=== PATIENT | male | born 1960 | race Hispanic/Latino ===

== ENCOUNTER → 2019-05-23 | Outpatient (CLI) | payer OTHER ==
[~2019-05-23] MED LIST: ASPI-1197 PO; ATOR40TA69 PO; FURO20TA4 PO; IBUP-2070 PO; LOSA50TA64 PO; METF-444 PO; METO-408 PO; NITR100C4 PO
== END | disposition home or self-care (01) ==
LOC: RAH 10:30
PROVIDERS: ATTEND Family Medicine
DX: R31.9 Hematuria, unspecified (principal)
CPT/HCPCS: 76770

== ENCOUNTER → 2020-01-24 | Outpatient (CLI) | payer SELFPAY | END | disposition home or self-care (01) | LOC: RAH 11:10 | PROVIDERS: ATTEND Internal Medicine Nephrology | DX: E04.2 Nontoxic multinodular goiter (principal) | CPT/HCPCS: 76536 ==

== ENCOUNTER → 2020-05-05 | Outpatient (CLI) | payer SELFPAY | END | disposition home or self-care (01) | LOC: RAH 12:08 | PROVIDERS: ATTEND Internal Medicine Nephrology | DX: M47.812 Spondylosis without myelopathy or radiculopathy, cervical region (principal); M48.02 Spinal stenosis, cervical region ==

== ENCOUNTER → 2020-05-27 | Outpatient (CLI) | payer SELFPAY | END | disposition home or self-care (01) | LOC: RAH 12:41 | PROVIDERS: ATTEND Internal Medicine Nephrology | DX: I67.82 Cerebral ischemia (principal); M50.221 Other cervical disc displacement at C4-C5 level; M50.222 Other cervical disc displacement at C5-C6 level; M50.223 Other cervical disc displacement at C6-C7 level | CPT/HCPCS: 70551; 72141 ==

== ENCOUNTER → 2020-07-02 | Outpatient (CLI) | payer SELFPAY | END | disposition home or self-care (01) | LOC: RAH 13:09 | PROVIDERS: ATTEND Internal Medicine Endocrinology, Diabetes & Metabolism | DX: E04.2 Nontoxic multinodular goiter (principal) | CPT/HCPCS: 76536 ==

== ENCOUNTER 2021-07-21 14:32 | Inpatient (IN) | payer OTHER ==
[~2021-07-21] VITALS: Ht 165.1 cm; Wt 172.4 kg
[2021-07-21 16:50] VITALS: BP 152/74
[2021-07-21] MEDS: ACETAMINOPHEN 500 MG TABLET PO SCH ×2 (17:38→21:08)
[2021-07-21 17:53] LABS: BASOPHILS % (AUTO) 0.1 % (0.0-5.0); HEMATOCRIT 36.1 % (42-54); LYMPHOCYTES % (AUTO) 7.9 % (21.0-51.0); MEAN CORPUSCULAR HEMOGLOBIN 30.1 pg (27.0-33.0); MEAN CORPUSCULAR HGB CONC 34.1 g/dL (32.0-36.0); MEAN CORPUSCULAR VOLUME 88.5 fL (79-99); MONOCYTES % (AUTO) 2.1 % (3.0-13.0); NEUTROPHILS % (AUTO) 89.2 % (40.0-77.0); PLATELET COUNT (AUTO) 201 K/uL (130-400); RED BLOOD CELL COUNT(AUTO) 4.08 MIL/uL (4.50-6.20); RED CELL DISTRIBUTION WIDTH 12.9 % (11.0-15.5); WHITE BLOOD COUNT (AUTO) 7.6 K/uL (4.8-10.8)
[2021-07-21 18:05] LABS: INR 1.09 (0.85-1.15); PROTHROMBIN TIME 11.8 SEC (9.6-11.6)
[2021-07-21 18:06] LABS: PARTIAL THROMBOPLASTIN TIME 35.4 SEC (26.3-35.5)
[2021-07-21 18:14] LABS: BILIRUBIN,TOTAL 0.6 mg/dL (0.2-1.0); CREATININE 1.2 mg/dL (0.5-1.5); POTASSIUM 4.2 mmol/L (3.5-5.1); TOTAL PROTEIN, SERUM 7.5 g/dL (6.0-8.3)
[2021-07-21] MEDS ORDERED: CEFTRIAXONE 1G VIAL IVP ONE (19:00)
[2021-07-21] MEDS ORDERED: AZITHROMYCIN 500MG+NS 250ML IV ONE (19:00)
[2021-07-21] MEDS ORDERED: 0.9% NACL 250ML IVPB ONE (19:00)
[2021-07-21 20:00] VITALS: BP 130/69
[2021-07-21] MEDS ORDERED: AZITHROMYCIN 500MG+NS 250ML 250 ML IV ONE (20:33)
[2021-07-21] MEDS ORDERED: CEFTRIAXONE 1G VIAL ONE (20:34)
[2021-07-21] MEDS: DEXAMETHASONE SOD PHOSPHATE 4 MG/ML 1ML VIAL IVP SCH (20:38)
[2021-07-21] MEDS ORDERED: IBUP-2070 PO (21:18)
[2021-07-21] MEDS ORDERED: SEMA1PEN3 SQ (21:18)
[2021-07-21] MEDS ORDERED: ALPR0.25 PO (21:18)
[2021-07-21] MEDS ORDERED: TAMS-1 PO (21:18)
[2021-07-21] MEDS ORDERED: ATOR40TA71 PO (21:18)
[2021-07-21] MEDS ORDERED: LOSA25TA41 PO (21:18)
[2021-07-21] MEDS ORDERED: ASPI-1197 PO (21:18)
[2021-07-21] MEDS ORDERED: METO25TA3 PO (21:18)
[2021-07-21] MEDS ORDERED: FURO20TA6 PO (21:18)
[2021-07-21] MEDS ORDERED: ONDANSETRON 4MG INJ IVP PRN (21:30)
[2021-07-21] MEDS ORDERED: IBUPROFEN 600 MG TABLET PO PRN ×2 (21:30)
[2021-07-21] MEDS ORDERED: SEMAGLUTIDE 0.5 MG SQ SCH (21:30)
[2021-07-21] MEDS ORDERED: INSULIN IV SS1 IV PRN ×2 (21:30)
[2021-07-21] MEDS ORDERED: GLUCAGON 1MG KIT 1 MG ML IM PRN (21:30)
[2021-07-21] MEDS ORDERED: ALPRAZOLAM 0.25 MG TABLET PO PRN (21:30)
[2021-07-21] MEDS ORDERED: DEXTROSE 50%-WATER 50 ML DISP.SYRIN IV PRN (21:30)
[2021-07-21] MEDS: DOXYCYCLINE HYCLATE 100 MG TABLET PO SCH (22:58)
[2021-07-22] VITALS (7 sets, daily range): BP systolic 132–162; BP diastolic 69–93
[2021-07-22] MEDS ORDERED: FUROSEMIDE 20 MG TABLET PO SCH ×2 (06:00→09:00)
[2021-07-22] MEDS: INSULIN HUMULIN R 100 UNIT/ML 3ML SQ SCH ×4 (06:15→20:55)
[2021-07-22 06:42] LABS: BASOPHILS % (AUTO) 0.1 % (0.0-5.0); HEMATOCRIT 40.6 % (42-54); LYMPHOCYTES % (AUTO) 6.6 % (21.0-51.0); MEAN CORPUSCULAR HEMOGLOBIN 29.7 pg (27.0-33.0); MEAN CORPUSCULAR HGB CONC 32.5 g/dL (32.0-36.0); MEAN CORPUSCULAR VOLUME 91.2 fL (79-99); MONOCYTES % (AUTO) 1.3 % (3.0-13.0); PLATELET COUNT (AUTO) 229 K/uL (130-400); RED BLOOD CELL COUNT(AUTO) 4.45 MIL/uL (4.50-6.20); RED CELL DISTRIBUTION WIDTH 12.8 % (11.0-15.5); WHITE BLOOD COUNT (AUTO) 9.2 K/uL (4.8-10.8)
[2021-07-22 06:46] LABS: HEMOGLOBIN A1C 6.3 % (4.0-6.0)
[2021-07-22 06:50] LABS: ALBUMIN 2.8 g/dL (3.5-5.0); BILIRUBIN,TOTAL 0.5 mg/dL (0.2-1.0); POTASSIUM 4.2 mmol/L (3.5-5.1); TOTAL PROTEIN, SERUM 7.6 g/dL (6.0-8.3)
[2021-07-22] MEDS ORDERED: METFORMIN HCL 500 MG TABLET PO SCH (08:00)
[2021-07-22] MEDS: DOXYCYCLINE HYCLATE 100 MG TABLET PO SCH ×2 (08:56→20:30)
[2021-07-22] MEDS ORDERED: SOLU-MEDROL 40MG VIAL IVP SCH (09:00)
[2021-07-22] MEDS ORDERED: ENOXAPARIN SODIUM 40 MG/0.4 ML SYRINGE SQ SCH (09:00)
[2021-07-22] MEDS ORDERED: TAMSULOSIN HCL 0.4 MG CAP.ER.24H PO SCH (09:00)
[2021-07-22] MEDS ORDERED: LOSARTAN 25 MG TABLET PO SCH (09:00)
[2021-07-22] MEDS ORDERED: METOPROLOL SUCCINATE 50 MG TAB.SR.24H PO SCH ×2 (09:00)
[2021-07-22] MEDS ORDERED: ASPIRIN 81MG CHEW TAB PO SCH ×2 (09:00)
[2021-07-22] MEDS ORDERED: FENOFIBRATE NANOCRYSTALLIZED 145 MG TAB PO SCH (09:30)
[2021-07-22 09:58] LABS: ABG BASE EXCESS -0.8 mmol/L (-2.0-3.0); ABG HCO3 22.7 mmol/L (21.0-28.0); ABG OXYGEN SATURATION 91.1 % (95.0-99.0); ABG PCO2 34 mmHg (35-48)
[2021-07-22] MEDS ORDERED: [UNRECOGNIZED DRUG - REMARK] MISC SCH (10:30)
[2021-07-22] MEDS: SOLU-MEDROL 125MG VIAL IVP SCH ×2 (10:50→16:54)
[2021-07-22] MEDS: FUROSEMIDE 20MG VIAL IV SCH ×2 (10:50→16:54)
[2021-07-22] MEDS: ENOXAPARIN SODIUM 80 MG/0.8 ML SQ SCH ×2 (10:51→20:31)
[2021-07-22] MEDS ORDERED: [UNRECOGNIZED DRUG - REMARK] MISC STA (14:11)
[2021-07-22] MEDS ORDERED: COMPOUND IV REFRIGERATED 1 EACH IVSOLN MISC PRN (14:30)
[2021-07-22] MEDS ORDERED: REMDESIVIR (EUA) 520 200 MG in 0.9% NACL 250ML 250 ML IV ONE (14:30)
[2021-07-22] MEDS: DEXAMETHASONE SOD PHOSPHATE 4 MG/ML 1ML VIAL IVP SCH (18:20)
[2021-07-22] MEDS ORDERED: CEFTRIAXONE 1G VIAL IVP ONE (19:00)
[2021-07-22] MEDS ORDERED: PHARMACY COMMUNICATION MISC SCH (19:30)
[2021-07-22] MEDS: OSELTAMIVIR PHOSPHATE 75 MG CAP PO SCH (20:30)
[2021-07-22] MEDS: HYDROXYCHLOROQUINE SULFATE 200 MG TAB PO SCH (20:30)
[2021-07-22] MEDS ORDERED: ATORVASTATIN 40 MG TABLET PO SCH ×2 (21:00)
[2021-07-22] MEDS: BARICITINIB (EUA) 2 MG TABLET PO SCH (23:30)
[2021-07-23] VITALS (7 sets, daily range): BP systolic 122–170; BP diastolic 57–85
[2021-07-23] MEDS: FUROSEMIDE 20MG VIAL IV SCH ×3 (01:53→17:36)
[2021-07-23] MEDS: SOLU-MEDROL 125MG VIAL IVP SCH ×3 (01:53→17:28)
[2021-07-23 05:04] LABS: BASOPHILS % (AUTO) 0.2 % (0.0-5.0); EOSINOPHILS % (AUTO) 0.1 % (0.0-8.0); HEMATOCRIT 41.3 % (42-54); LYMPHOCYTES % (AUTO) 6.2 % (21.0-51.0); MEAN CORPUSCULAR HGB CONC 33.9 g/dL (32.0-36.0); MEAN CORPUSCULAR VOLUME 88.6 fL (79-99); MONOCYTES % (AUTO) 1.8 % (3.0-13.0); NEUTROPHILS % (AUTO) 90.7 % (40.0-77.0); PLATELET COUNT (AUTO) 311 K/uL (130-400); RED BLOOD CELL COUNT(AUTO) 4.66 MIL/uL (4.50-6.20); RED CELL DISTRIBUTION WIDTH 12.7 % (11.0-15.5); WHITE BLOOD COUNT (AUTO) 11.5 K/uL (4.8-10.8)
[2021-07-23 05:18] LABS: ABG BASE EXCESS 1.6 mmol/L (-2.0-3.0); ABG HCO3 25.2 mmol/L (21.0-28.0); ABG OXYGEN SATURATION 90.5 % (95.0-99.0); ABG PCO2 36 mmHg (35-48)
[2021-07-23 05:33] LABS: ALBUMIN 2.9 g/dL (3.5-5.0); BILIRUBIN,TOTAL 0.6 mg/dL (0.2-1.0); CREATININE 1.1 mg/dL (0.5-1.5); CRP QUANTITATIVE 234.4 mg/L (0.00-9.0); MAGNESIUM 2.1 mg/dL (1.80-2.40); PHOSPHORUS 3.7 mg/dL (2.5-4.9); POTASSIUM 3.4 mmol/L (3.5-5.1)
[2021-07-23] MEDS: REMDESIVIR LABS MISC SCH (06:00)
[2021-07-23] MEDS: INSULIN HUMULIN R 100 UNIT/ML 3ML SQ SCH ×4 (06:20→21:59)
[2021-07-23] MEDS ORDERED: LIDOCAINE HCL-MPF 1% 2ML VIAL IV PRN ×2 (07:00)
[2021-07-23] MEDS ORDERED: POTASSIUM CHLORIDE 20MEQ/100ML 100 ML IV PRN (07:00)
[2021-07-23] MEDS ORDERED: BARICITINIB (EUA) 2 MG TABLET PO SCH (09:00)
[2021-07-23] MEDS: FENOFIBRATE NANOCRYSTALLIZED 145 MG TAB PO SCH (09:06)
[2021-07-23] MEDS: HYDROXYCHLOROQUINE SULFATE 200 MG TAB PO SCH ×2 (09:07→20:07)
[2021-07-23] MEDS: BARICITINIB (EUA) 2 MG TABLET PO SCH (09:07)
[2021-07-23] MEDS: DOXYCYCLINE HYCLATE 100 MG TABLET PO SCH ×2 (09:08→20:07)
[2021-07-23] MEDS: KCL 20 MEQ ERTAB PO PRN ×2 (09:08→17:29)
[2021-07-23] MEDS: OSELTAMIVIR PHOSPHATE 75 MG CAP PO SCH ×2 (09:08→20:07)
[2021-07-23] MEDS: ENOXAPARIN SODIUM 80 MG/0.8 ML SQ SCH ×2 (09:09→20:08)
[2021-07-23] MEDS: REMDESIVIR (EUA) 520 100 MG in 0.9% NACL 250ML 250 ML IV SCH (15:17)
[2021-07-23] MEDS: DIAZEPAM 5 MG TABLET PO PRN (17:46)
[2021-07-24] MEDS: FUROSEMIDE 20MG VIAL IV SCH ×3 (02:18→16:11)
[2021-07-24] MEDS: SOLU-MEDROL 125MG VIAL IVP SCH ×3 (02:19→16:11)
[2021-07-24 03:45] VITALS: BP 136/70
[2021-07-24 04:49] LABS: BASOPHILS % (AUTO) 0.2 % (0.0-5.0); EOSINOPHILS % (AUTO) 0.2 % (0.0-8.0); HEMATOCRIT 40.4 % (42-54); LYMPHOCYTES % (AUTO) 6.4 % (21.0-51.0); MEAN CORPUSCULAR HEMOGLOBIN 29.8 pg (27.0-33.0); MEAN CORPUSCULAR HGB CONC 32.9 g/dL (32.0-36.0); MEAN CORPUSCULAR VOLUME 90.6 fL (79-99); MONOCYTES % (AUTO) 2.5 % (3.0-13.0); NEUTROPHILS % (AUTO) 89.3 % (40.0-77.0); NUCLEATED RED BLOOD CELLS 0.2 % (0.0-0.19); PLATELET COUNT (AUTO) 385 K/uL (130-400); RED BLOOD CELL COUNT(AUTO) 4.46 MIL/uL (4.50-6.20); RED CELL DISTRIBUTION WIDTH 12.8 % (11.0-15.5); WHITE BLOOD COUNT (AUTO) 12.6 K/uL (4.8-10.8)
[2021-07-24 05:18] LABS: ALBUMIN 2.6 g/dL (3.5-5.0); BILIRUBIN,TOTAL 0.6 mg/dL (0.2-1.0); CREATININE 1.2 mg/dL (0.5-1.5); POTASSIUM 3.6 mmol/L (3.5-5.1); TOTAL PROTEIN, SERUM 7.4 g/dL (6.0-8.3)
[2021-07-24] MEDS: INSULIN HUMULIN R 100 UNIT/ML 3ML SQ SCH ×4 (06:11→22:15)
[2021-07-24 08:26] VITALS: BP 160/85
[2021-07-24] MEDS: HYDROXYCHLOROQUINE SULFATE 200 MG TAB PO SCH ×2 (09:54→22:04)
[2021-07-24] MEDS: FENOFIBRATE NANOCRYSTALLIZED 145 MG TAB PO SCH (09:54)
[2021-07-24] MEDS: KCL 20 MEQ ERTAB PO PRN ×2 (09:55→16:11)
[2021-07-24] MEDS: BARICITINIB (EUA) 2 MG TABLET PO SCH (09:55)
[2021-07-24] MEDS: DOXYCYCLINE HYCLATE 100 MG TABLET PO SCH ×2 (09:55→22:04)
[2021-07-24] MEDS: OSELTAMIVIR PHOSPHATE 75 MG CAP PO SCH ×2 (09:55→22:04)
[2021-07-24] MEDS: ENOXAPARIN SODIUM 80 MG/0.8 ML SQ SCH ×2 (09:56→22:05)
[2021-07-24] MEDS: DIAZEPAM 5 MG TABLET PO PRN ×2 (10:17→22:04)
[2021-07-24 11:03] VITALS: BP 116/40
[2021-07-24] MEDS: REMDESIVIR (EUA) 520 100 MG in 0.9% NACL 250ML 250 ML IV SCH (15:55)
[2021-07-24 16:44] VITALS: BP 159/85
[2021-07-24 20:00] VITALS: BP 129/65
[2021-07-24 23:37] VITALS: BP 137/79
[2021-07-25] MEDS: SOLU-MEDROL 125MG VIAL IVP SCH ×3 (01:09→17:50)
[2021-07-25] MEDS: FUROSEMIDE 20MG VIAL IV SCH ×2 (01:10→09:05)
[2021-07-25 03:54] LABS: ABG BASE EXCESS 4.6 mmol/L (-2.0-3.0); ABG HCO3 28.8 mmol/L (21.0-28.0); ABG OXYGEN SATURATION 88.5 % (95.0-99.0); ABG PCO2 41 mmHg (35-48)
[2021-07-25 04:00] VITALS: BP 129/76
[2021-07-25 06:13] LABS: BASOPHILS % (AUTO) 0.1 % (0.0-5.0); HEMATOCRIT 38.5 % (42-54); LYMPHOCYTES % (AUTO) 8.9 % (21.0-51.0); MEAN CORPUSCULAR HEMOGLOBIN 29.5 pg (27.0-33.0); MEAN CORPUSCULAR HGB CONC 32.5 g/dL (32.0-36.0); MEAN CORPUSCULAR VOLUME 90.8 fL (79-99); MONOCYTES % (AUTO) 3.1 % (3.0-13.0); NUCLEATED RED BLOOD CELLS 0.2 % (0.0-0.19); PLATELET COUNT (AUTO) 429 K/uL (130-400); RED BLOOD CELL COUNT(AUTO) 4.24 MIL/uL (4.50-6.20); RED CELL DISTRIBUTION WIDTH 12.8 % (11.0-15.5); WHITE BLOOD COUNT (AUTO) 9.1 K/uL (4.8-10.8)
[2021-07-25] MEDS: INSULIN HUMULIN R 100 UNIT/ML 3ML SQ SCH ×4 (06:17→21:07)
[2021-07-25 06:26] LABS: ALBUMIN 2.7 g/dL (3.5-5.0); BILIRUBIN,TOTAL 0.7 mg/dL (0.2-1.0); CREATININE 1.3 mg/dL (0.5-1.5); CRP QUANTITATIVE 57.1 mg/L (0.00-9.0); POTASSIUM 3.7 mmol/L (3.5-5.1); TOTAL PROTEIN, SERUM 7.1 g/dL (6.0-8.3)
[2021-07-25] MEDS: REMDESIVIR LABS MISC SCH (06:59)
[2021-07-25 08:00] VITALS: BP 145/74
[2021-07-25] MEDS: DIAZEPAM 5 MG TABLET PO PRN ×2 (08:36→21:24)
[2021-07-25] MEDS: OSELTAMIVIR PHOSPHATE 75 MG CAP PO SCH ×2 (08:36→21:20)
[2021-07-25] MEDS: DOXYCYCLINE HYCLATE 100 MG TABLET PO SCH ×2 (08:36→21:20)
[2021-07-25] MEDS: FENOFIBRATE NANOCRYSTALLIZED 145 MG TAB PO SCH (08:36)
[2021-07-25] MEDS: HYDROXYCHLOROQUINE SULFATE 200 MG TAB PO SCH ×2 (08:36→21:20)
[2021-07-25] MEDS: ENOXAPARIN SODIUM 80 MG/0.8 ML SQ SCH ×2 (08:37→21:20)
[2021-07-25] MEDS: BARICITINIB (EUA) 2 MG TABLET PO SCH (08:38)
[2021-07-25 12:00] VITALS: BP 137/75
[2021-07-25] MEDS: REMDESIVIR (EUA) 520 100 MG in 0.9% NACL 250ML 250 ML IV SCH (14:55)
[2021-07-25 16:00] VITALS: BP 150/73
[2021-07-25 20:00] VITALS: BP 159/84
[2021-07-25] MEDS: KCL 20 MEQ ERTAB PO PRN ×2 (21:20→22:46)
[2021-07-25 23:45] VITALS: BP 150/83
[2021-07-26] MEDS: SOLU-MEDROL 125MG VIAL IVP SCH ×3 (01:09→16:42)
[2021-07-26 03:43] VITALS: BP 148/75
[2021-07-26] MEDS: DIAZEPAM 5 MG TABLET PO PRN ×3 (05:01→20:41)
[2021-07-26 05:44] LABS: BASOPHILS % (AUTO) 0.1 % (0.0-5.0); HEMATOCRIT 38.3 % (42-54); LYMPHOCYTES % (AUTO) 9.2 % (21.0-51.0); MEAN CORPUSCULAR HEMOGLOBIN 29.6 pg (27.0-33.0); MEAN CORPUSCULAR HGB CONC 32.9 g/dL (32.0-36.0); MEAN CORPUSCULAR VOLUME 89.9 fL (79-99); PLATELET COUNT (AUTO) 459 K/uL (130-400); RED BLOOD CELL COUNT(AUTO) 4.26 MIL/uL (4.50-6.20); RED CELL DISTRIBUTION WIDTH 12.6 % (11.0-15.5); WHITE BLOOD COUNT (AUTO) 7.8 K/uL (4.8-10.8)
[2021-07-26 06:07] LABS: ALBUMIN 2.7 g/dL (3.5-5.0); BILIRUBIN,TOTAL 0.7 mg/dL (0.2-1.0); CREATININE 1.3 mg/dL (0.5-1.5); CRP QUANTITATIVE 32.6 mg/L (0.00-9.0); POTASSIUM 4.1 mmol/L (3.5-5.1); TOTAL PROTEIN, SERUM 6.9 g/dL (6.0-8.3)
[2021-07-26] MEDS: INSULIN HUMULIN R 100 UNIT/ML 3ML SQ SCH ×4 (06:23→20:35)
[2021-07-26] MEDS: REMDESIVIR LABS MISC SCH (06:23)
[2021-07-26 08:00] VITALS: BP 159/88
[2021-07-26] MEDS ORDERED: FUROSEMIDE 40 MG TABLET PO SCH (09:00)
[2021-07-26] MEDS: FENOFIBRATE NANOCRYSTALLIZED 145 MG TAB PO SCH (09:03)
[2021-07-26] MEDS: HYDROXYCHLOROQUINE SULFATE 200 MG TAB PO SCH ×2 (09:03→20:42)
[2021-07-26] MEDS: DOXYCYCLINE HYCLATE 100 MG TABLET PO SCH ×2 (09:03→20:42)
[2021-07-26] MEDS: BARICITINIB (EUA) 2 MG TABLET PO SCH (09:03)
[2021-07-26] MEDS: OSELTAMIVIR PHOSPHATE 75 MG CAP PO SCH ×2 (09:05→20:41)
[2021-07-26] MEDS: ENOXAPARIN SODIUM 80 MG/0.8 ML SQ SCH ×2 (09:05→20:41)
[2021-07-26 12:00] VITALS: BP 145/79
[2021-07-26] MEDS: REMDESIVIR (EUA) 520 100 MG in 0.9% NACL 250ML 250 ML IV SCH (13:36)
[2021-07-26 16:00] VITALS: BP 140/76
[2021-07-26 20:09] VITALS: BP 156/79
[2021-07-26] MEDS: FUROSEMIDE 40 MG TABLET PO SCH (20:41)
[2021-07-26 23:49] VITALS: BP 158/79
[2021-07-27] MEDS: SOLU-MEDROL 125MG VIAL IVP SCH ×3 (00:30→17:31)
[2021-07-27 04:36] VITALS: BP 159/71
[2021-07-27 04:48] LABS: BASOPHILS % (AUTO) 0.1 % (0.0-5.0); HEMATOCRIT 39.5 % (42-54); LYMPHOCYTES % (AUTO) 4.2 % (21.0-51.0); MEAN CORPUSCULAR HEMOGLOBIN 29.7 pg (27.0-33.0); MEAN CORPUSCULAR HGB CONC 32.7 g/dL (32.0-36.0); MEAN CORPUSCULAR VOLUME 90.8 fL (79-99); MONOCYTES % (AUTO) 3.8 % (3.0-13.0); NEUTROPHILS % (AUTO) 88.2 % (40.0-77.0); PLATELET COUNT (AUTO) 508 K/uL (130-400); RED BLOOD CELL COUNT(AUTO) 4.35 MIL/uL (4.50-6.20); RED CELL DISTRIBUTION WIDTH 12.3 % (11.0-15.5); WHITE BLOOD COUNT (AUTO) 11.1 K/uL (4.8-10.8)
[2021-07-27 05:03] LABS: ALBUMIN 2.8 g/dL (3.5-5.0); BILIRUBIN,TOTAL 0.8 mg/dL (0.2-1.0); CREATININE 1.2 mg/dL (0.5-1.5); POTASSIUM 3.9 mmol/L (3.5-5.1); TOTAL PROTEIN, SERUM 6.8 g/dL (6.0-8.3)
[2021-07-27] MEDS: INSULIN HUMULIN R 100 UNIT/ML 3ML SQ SCH ×4 (06:52→20:56)
[2021-07-27 07:00] VITALS: BP 154/89
[2021-07-27 07:56] LABS: ABG BASE EXCESS 5.9 mmol/L (-2.0-3.0); ABG HCO3 29.9 mmol/L (21.0-28.0); ABG OXYGEN SATURATION 90.2 % (95.0-99.0); ABG PCO2 41 mmHg (35-48)
[2021-07-27 11:00] VITALS: BP 147/80
[2021-07-27] MEDS: HYDROXYCHLOROQUINE SULFATE 200 MG TAB PO SCH ×2 (11:03→20:57)
[2021-07-27] MEDS: OSELTAMIVIR PHOSPHATE 75 MG CAP PO SCH (11:03)
[2021-07-27] MEDS: DOXYCYCLINE HYCLATE 100 MG TABLET PO SCH ×2 (11:03→20:57)
[2021-07-27] MEDS: BARICITINIB (EUA) 2 MG TABLET PO SCH (11:03)
[2021-07-27] MEDS: FENOFIBRATE NANOCRYSTALLIZED 145 MG TAB PO SCH (11:04)
[2021-07-27] MEDS: FUROSEMIDE 40 MG TABLET PO SCH ×2 (11:04→20:57)
[2021-07-27] MEDS: ENOXAPARIN SODIUM 80 MG/0.8 ML SQ SCH ×2 (11:05→20:59)
[2021-07-27] MEDS: DIAZEPAM 5 MG TABLET PO SCH ×2 (12:44→20:58)
[2021-07-27 16:00] VITALS: BP 149/88
[2021-07-27] MEDS: DIAZEPAM 5 MG TABLET PO PRN (16:14)
[2021-07-27 20:08] VITALS: BP 131/71
[2021-07-27] MEDS: TEMAZEPAM 15 MG CAPSULE PO SCH (21:01)
[2021-07-27] MEDS: BUSPIRONE HCL 5 MG TABLET PO SCH (21:01)
[2021-07-27 22:46] LABS: APPEARANCE,URINE Clear (CLEAR); BILIRUBIN,URINE Negative (NEGATIVE); COLOR,URINE Yellow (YELLOW); GLUCOSE, URINE (UA) Negative (NEGATIVE); KETONES,URINE Negative (NEGATIVE); LEUKOCYTE ESTERASE ,URINE Negative (NEGATIVE); NITRATE,URINE Negative (NEGATIVE); OCCULT BLOOD,URINE Negative (NEGATIVE); PROTEIN,URINE POS 1+ mg/dL (NEGATIVE)
[2021-07-27 23:03] LABS: BACTERIA,URINE None Seen /HPF (None Seen); SQUAMOUS EPITHELIAL CELL,UR Few /HPF (0-2)
[2021-07-28] VITALS (7 sets, daily range): BP systolic 107–122; BP diastolic 53–65
[2021-07-28] MEDS: SOLU-MEDROL 125MG VIAL IVP SCH ×3 (00:49→17:13)
[2021-07-28] MEDS: DIAZEPAM 5 MG TABLET PO SCH ×3 (04:00→20:50)
[2021-07-28 04:45] LABS: BASOPHILS % (AUTO) 0.2 % (0.0-5.0); HEMATOCRIT 36.5 % (42-54); LYMPHOCYTES % (AUTO) 3.8 % (21.0-51.0); MEAN CORPUSCULAR HEMOGLOBIN 29.9 pg (27.0-33.0); MEAN CORPUSCULAR HGB CONC 33.4 g/dL (32.0-36.0); MEAN CORPUSCULAR VOLUME 89.5 fL (79-99); MONOCYTES % (AUTO) 2.5 % (3.0-13.0); NEUTROPHILS % (AUTO) 91.1 % (40.0-77.0); PLATELET COUNT (AUTO) 561 K/uL (130-400); RED BLOOD CELL COUNT(AUTO) 4.08 MIL/uL (4.50-6.20); RED CELL DISTRIBUTION WIDTH 12.2 % (11.0-15.5)
[2021-07-28 05:11] LABS: ALBUMIN 2.7 g/dL (3.5-5.0); BILIRUBIN,TOTAL 0.7 mg/dL (0.2-1.0); CREATININE 1.2 mg/dL (0.5-1.5); TOTAL PROTEIN, SERUM 6.4 g/dL (6.0-8.3)
[2021-07-28] MEDS: INSULIN HUMULIN R 100 UNIT/ML 3ML SQ SCH ×4 (06:08→21:14)
[2021-07-28] MEDS: FENOFIBRATE NANOCRYSTALLIZED 145 MG TAB PO SCH (08:51)
[2021-07-28] MEDS: FUROSEMIDE 40 MG TABLET PO SCH ×2 (08:51→20:51)
[2021-07-28] MEDS: BARICITINIB (EUA) 2 MG TABLET PO SCH (08:51)
[2021-07-28] MEDS: ENOXAPARIN SODIUM 80 MG/0.8 ML SQ SCH ×2 (08:52→20:52)
[2021-07-28] MEDS: BUSPIRONE HCL 5 MG TABLET PO SCH ×2 (08:52→20:51)
[2021-07-28] MEDS: DOXYCYCLINE HYCLATE 100 MG TABLET PO SCH ×2 (08:52→20:50)
[2021-07-28] MEDS: HYDROXYCHLOROQUINE SULFATE 200 MG TAB PO SCH ×2 (08:52→20:50)
[2021-07-28] MEDS: DIAZEPAM 5 MG TABLET PO PRN (10:11)
[2021-07-28] MEDS: CLOTRIMAZOLE 10 MG TROCHE MM SCH ×2 (12:00→17:13)
[2021-07-28] MEDS: TEMAZEPAM 15 MG CAPSULE PO SCH (20:51)
[2021-07-29] MEDS: SOLU-MEDROL 125MG VIAL IVP SCH ×3 (00:45→16:42)
[2021-07-29] MEDS: CLOTRIMAZOLE 10 MG TROCHE MM SCH ×4 (00:46→16:42)
[2021-07-29 03:29] LABS: ABG BASE EXCESS 5.5 mmol/L (-2.0-3.0); ABG HCO3 29.3 mmol/L (21.0-28.0); ABG OXYGEN SATURATION 91.2 % (95.0-99.0); ABG PCO2 40 mmHg (35-48)
[2021-07-29] MEDS: DIAZEPAM 5 MG TABLET PO SCH ×3 (04:00→20:11)
[2021-07-29 04:13] VITALS: BP 100/54
[2021-07-29 05:42] LABS: CREATININE 1.1 mg/dL (0.5-1.5); POTASSIUM 4.3 mmol/L (3.5-5.1)
[2021-07-29] MEDS: INSULIN HUMULIN R 100 UNIT/ML 3ML SQ SCH ×4 (05:58→21:22)
[2021-07-29 08:00] VITALS: BP 125/71
[2021-07-29] MEDS: BUSPIRONE HCL 5 MG TABLET PO SCH ×3 (08:35→21:16)
[2021-07-29] MEDS: HYDROXYCHLOROQUINE SULFATE 200 MG TAB PO SCH ×2 (08:35→22:01)
[2021-07-29] MEDS: DOXYCYCLINE HYCLATE 100 MG TABLET PO SCH (08:36)
[2021-07-29] MEDS: FUROSEMIDE 40 MG TABLET PO SCH ×2 (08:36→21:16)
[2021-07-29] MEDS: BARICITINIB (EUA) 2 MG TABLET PO SCH (08:36)
[2021-07-29] MEDS: FENOFIBRATE NANOCRYSTALLIZED 145 MG TAB PO SCH (08:36)
[2021-07-29] MEDS: ENOXAPARIN SODIUM 80 MG/0.8 ML SQ SCH ×2 (08:37→21:16)
[2021-07-29 12:00] VITALS: BP 108/71
[2021-07-29 16:00] VITALS: BP 121/66
[2021-07-29 20:04] VITALS: BP 118/70
[2021-07-29] MEDS: TEMAZEPAM 15 MG CAPSULE PO SCH (21:16)
[2021-07-29 23:43] VITALS: BP 124/89
[2021-07-30] VITALS (7 sets, daily range): BP systolic 108–137; BP diastolic 56–81
[2021-07-30] MEDS: SOLU-MEDROL 125MG VIAL IVP SCH ×3 (00:44→17:29)
[2021-07-30] MEDS: CLOTRIMAZOLE 10 MG TROCHE MM SCH ×5 (00:44→23:19)
[2021-07-30] MEDS: DIAZEPAM 5 MG TABLET PO SCH ×3 (04:00→20:06)
[2021-07-30 05:02] LABS: HEMATOCRIT 37.3 % (42-54); MEAN CORPUSCULAR HGB CONC 33.2 g/dL (32.0-36.0); MEAN CORPUSCULAR VOLUME 90.1 fL (79-99); RED BLOOD CELL COUNT(AUTO) 4.14 MIL/uL (4.50-6.20); RED CELL DISTRIBUTION WIDTH 12.2 % (11.0-15.5); WHITE BLOOD COUNT (AUTO) 15.7 K/uL (4.8-10.8)
[2021-07-30 05:13] LABS: CREATININE 1.2 mg/dL (0.5-1.5); CRP QUANTITATIVE 44.5 mg/L (0.00-9.0); POTASSIUM 4.1 mmol/L (3.5-5.1)
[2021-07-30] MEDS: INSULIN HUMULIN R 100 UNIT/ML 3ML SQ SCH ×4 (06:25→20:05)
[2021-07-30] MEDS: FENOFIBRATE NANOCRYSTALLIZED 145 MG TAB PO SCH (09:10)
[2021-07-30] MEDS: BARICITINIB (EUA) 2 MG TABLET PO SCH (09:10)
[2021-07-30] MEDS: FUROSEMIDE 40 MG TABLET PO SCH ×2 (09:10→20:06)
[2021-07-30] MEDS: BUSPIRONE HCL 5 MG TABLET PO SCH ×3 (09:10→20:06)
[2021-07-30] MEDS: HYDROXYCHLOROQUINE SULFATE 200 MG TAB PO SCH ×2 (09:11→20:06)
[2021-07-30] MEDS: ENOXAPARIN SODIUM 80 MG/0.8 ML SQ SCH ×2 (10:02→20:13)
[2021-07-30] MEDS: TEMAZEPAM 15 MG CAPSULE PO SCH (20:06)
[2021-07-31] MEDS: SOLU-MEDROL 125MG VIAL IVP SCH (00:53)
[2021-07-31] MEDS: DIAZEPAM 5 MG TABLET PO SCH ×3 (04:39→19:49)
[2021-07-31] MEDS: CLOTRIMAZOLE 10 MG TROCHE MM SCH ×4 (04:39→22:59)
[2021-07-31 04:57] VITALS: BP 110/64
[2021-07-31] MEDS: INSULIN HUMULIN R 100 UNIT/ML 3ML SQ SCH ×4 (06:01→19:50)
[2021-07-31 06:40] LABS: ALBUMIN 2.5 g/dL (3.5-5.0); BILIRUBIN,TOTAL 0.7 mg/dL (0.2-1.0); CREATININE 1.2 mg/dL (0.5-1.5); CRP QUANTITATIVE 54.2 mg/L (0.00-9.0); POTASSIUM 4.4 mmol/L (3.5-5.1); TOTAL PROTEIN, SERUM 5.9 g/dL (6.0-8.3)
[2021-07-31 06:51] VITALS: BP 130/67
[2021-07-31] MEDS: FENOFIBRATE NANOCRYSTALLIZED 145 MG TAB PO SCH (09:23)
[2021-07-31] MEDS: HYDROXYCHLOROQUINE SULFATE 200 MG TAB PO SCH ×2 (09:23→19:49)
[2021-07-31] MEDS: BARICITINIB (EUA) 2 MG TABLET PO SCH (09:23)
[2021-07-31] MEDS: BUSPIRONE HCL 5 MG TABLET PO SCH ×3 (09:23→20:05)
[2021-07-31] MEDS: FUROSEMIDE 40 MG TABLET PO SCH ×2 (09:23→19:50)
[2021-07-31] MEDS: ENOXAPARIN SODIUM 80 MG/0.8 ML SQ SCH ×2 (09:24→19:49)
[2021-07-31] MEDS: SOLU-MEDROL 40MG VIAL IVP SCH ×2 (09:25→17:21)
[2021-07-31 12:00] VITALS: BP 138/73
[2021-07-31 16:00] VITALS: BP 120/66
[2021-07-31] MEDS: TEMAZEPAM 15 MG CAPSULE PO SCH (19:49)
[2021-07-31 20:13] VITALS: BP 133/75
[2021-07-31 23:46] VITALS: BP 123/64
[2021-08-01] VITALS (38 sets, daily range): BP systolic 62–146; BP diastolic 16–92
[2021-08-01] MEDS: SOLU-MEDROL 40MG VIAL IVP SCH ×3 (00:28→17:10)
[2021-08-01] MEDS: DIAZEPAM 5 MG TABLET PO SCH (04:00)
[2021-08-01] MEDS: CLOTRIMAZOLE 10 MG TROCHE MM SCH ×2 (04:00→12:00)
[2021-08-01 05:20] LABS: HEMATOCRIT 35.2 % (42-54); MEAN CORPUSCULAR HEMOGLOBIN 29.9 pg (27.0-33.0); MEAN CORPUSCULAR HGB CONC 33.5 g/dL (32.0-36.0); MEAN CORPUSCULAR VOLUME 89.3 fL (79-99); RED BLOOD CELL COUNT(AUTO) 3.94 MIL/uL (4.50-6.20); RED CELL DISTRIBUTION WIDTH 12.2 % (11.0-15.5); WHITE BLOOD COUNT (AUTO) 14.7 K/uL (4.8-10.8)
[2021-08-01 05:33] LABS: CRP QUANTITATIVE 98.5 mg/L (0.00-9.0); MAGNESIUM 2.7 mg/dL (1.80-2.40); POTASSIUM 4.1 mmol/L (3.5-5.1)
[2021-08-01] MEDS: INSULIN HUMULIN R 100 UNIT/ML 3ML SQ SCH ×2 (06:10→17:12)
[2021-08-01] MEDS: FENOFIBRATE NANOCRYSTALLIZED 145 MG TAB PO SCH (09:39)
[2021-08-01] MEDS: HYDROXYCHLOROQUINE SULFATE 200 MG TAB PO SCH (09:39)
[2021-08-01] MEDS: FUROSEMIDE 40 MG TABLET PO SCH (09:39)
[2021-08-01] MEDS: BUSPIRONE HCL 5 MG TABLET PO SCH (09:39)
[2021-08-01] MEDS: BARICITINIB (EUA) 2 MG TABLET PO SCH (09:39)
[2021-08-01] MEDS: ENOXAPARIN SODIUM 80 MG/0.8 ML SQ SCH ×2 (09:40→20:56)
[2021-08-01] MEDS ORDERED: [UNRECOGNIZED DRUG - OTHER] IV SCH (11:16)
[2021-08-01] MEDS ORDERED: ROCURONIUM IV SCH (11:16)
[2021-08-01] MEDS ORDERED: MIDAZOLAM 100MG-0.9% NS 100ML 100 ML IV ONE (11:18)
[2021-08-01] MEDS ORDERED: FENTANYL CITRATE PF 0.05 MG/ML 1,000 MCG in 0.9%NACL 100ML 100 ML IVPB SCH (11:30)
[2021-08-01] MEDS: FENTANYL 2500MCG+NS 250ML 250 ML IV SCH ×2 (11:55→21:14)
[2021-08-01] MEDS: MIDAZOLAM 100MG-0.9% NS 100ML 100ML BAG IV SCH ×2 (11:56→17:59)
[2021-08-01] MEDS: CISATRACURIUM BESYLATE 100 MG in 0.9%NACL 100ML 100 ML IV SCH ×4 (11:58→21:15)
[2021-08-01] MEDS: FENTANYL CITRATE PF 50 MCG/1 ML 2ML VIAL IVP SCH (11:59)
[2021-08-01] MEDS: ETOMIDATE 20MG VIAL IVP SCH (11:59)
[2021-08-01 12:01] LABS: ABG BASE EXCESS 1.5 mmol/L (-2.0-3.0); ABG HCO3 29.3 mmol/L (21.0-28.0); ABG OXYGEN SATURATION 85.1 % (95.0-99.0); ABG PCO2 60 mmHg (35-48)
[2021-08-01] MEDS: MIDAZOLAM HCL 1 MG/ML 2ML VIAL IVP SCH (12:03)
[2021-08-01 12:12] LABS: CREATININE 1.1 mg/dL (0.5-1.5); POTASSIUM 3.5 mmol/L (3.5-5.1)
[2021-08-01 12:22] LABS: ALBUMIN 2.8 g/dL (3.5-5.0); BILIRUBIN,TOTAL 0.9 mg/dL (0.2-1.0); TOTAL PROTEIN, SERUM 7.7 g/dL (6.0-8.3)
[2021-08-01] MEDS ORDERED: DIAZEPAM 5 MG/ML 2 ML SYG IVP ONE (13:30)
[2021-08-01] MEDS ORDERED: DIAZEPAM 5 MG/ML 2 ML SYG IV PRN (13:30)
[2021-08-01] MEDS: NOREPINEPHRIN 4MG/NS 250ML 250 ML IV PRN ×3 (14:21→21:26)
[2021-08-01] MEDS ORDERED: METOPROLOL TARTRATE 1 MG/ML 5ML VIAL IV ONE (15:23)
[2021-08-01] MEDS: CHLORHEXIDINE GLUCONATE 473 ML MOUTHWASH MM SCH (17:13)
[2021-08-01] MEDS: POTASSIUM CHLORIDE 20MEQ/100ML 100 ML IV PRN ×2 (18:14→21:04)
[2021-08-01] MEDS: FUROSEMIDE 40MG VIAL IV SCH (20:57)
[2021-08-02] VITALS (39 sets, daily range): BP systolic 100–152; BP diastolic 57–88
[2021-08-02] MEDS: CHLORHEXIDINE GLUCONATE 473 ML MOUTHWASH MM SCH ×5 (00:35→23:21)
[2021-08-02] MEDS: SOLU-MEDROL 40MG VIAL IVP SCH ×2 (00:36→10:14)
[2021-08-02] MEDS: INSULIN HUMULIN R 100 UNIT/ML 3ML SQ SCH ×5 (00:50→23:32)
[2021-08-02] MEDS: CISATRACURIUM BESYLATE 100 MG in 0.9%NACL 100ML 100 ML IV SCH ×4 (01:53→23:42)
[2021-08-02] MEDS: MIDAZOLAM 100MG-0.9% NS 100ML 100ML BAG IV SCH ×2 (02:20→23:17)
[2021-08-02] MEDS: NOREPINEPHRIN 4MG/NS 250ML 250 ML IV PRN ×2 (02:22→11:41)
[2021-08-02 03:35] LABS: HEMATOCRIT 36.5 % (42-54); MEAN CORPUSCULAR HEMOGLOBIN 29.9 pg (27.0-33.0); MEAN CORPUSCULAR HGB CONC 32.1 g/dL (32.0-36.0); MEAN CORPUSCULAR VOLUME 93.4 fL (79-99); RED BLOOD CELL COUNT(AUTO) 3.91 MIL/uL (4.50-6.20); RED CELL DISTRIBUTION WIDTH 12.5 % (11.0-15.5); WHITE BLOOD COUNT (AUTO) 21.6 K/uL (4.8-10.8)
[2021-08-02 03:46] LABS: ABG BASE EXCESS 1.2 mmol/L (-2.0-3.0); ABG HCO3 28.6 mmol/L (21.0-28.0); ABG PCO2 58 mmHg (35-48)
[2021-08-02 04:01] LABS: MAGNESIUM 2.6 mg/dL (1.80-2.40); POTASSIUM 5.4 mmol/L (3.5-5.1)
[2021-08-02 04:37] LABS: CRP QUANTITATIVE 221.7 mg/L (0.00-9.0)
[2021-08-02] MEDS: ETOMIDATE 20MG VIAL IVP SCH (08:50)
[2021-08-02] MEDS: MIDAZOLAM HCL 1 MG/ML 2ML VIAL IVP SCH (08:50)
[2021-08-02] MEDS: FENTANYL CITRATE PF 50 MCG/1 ML 2ML VIAL IVP SCH (08:50)
[2021-08-02] MEDS: ENOXAPARIN SODIUM 80 MG/0.8 ML SQ SCH ×2 (10:14→20:55)
[2021-08-02] MEDS: FUROSEMIDE 40MG VIAL IV SCH ×2 (10:14→20:54)
[2021-08-02] MEDS: BARICITINIB (EUA) 2 MG TABLET PO SCH (10:15)
[2021-08-02] MEDS: FENTANYL 2500MCG+NS 250ML 250 ML IV SCH ×2 (12:52→23:20)
[2021-08-03] VITALS (31 sets, daily range): BP systolic 108–157; BP diastolic 63–93
[2021-08-03] MEDS: SOLU-MEDROL 40MG VIAL IVP SCH ×3 (01:11→17:49)
[2021-08-03 04:02] LABS: ABG BASE EXCESS 4.8 mmol/L (-2.0-3.0); ABG HCO3 32.1 mmol/L (21.0-28.0); ABG OXYGEN SATURATION 88.5 % (95.0-99.0); ABG PCO2 61 mmHg (35-48)
[2021-08-03 04:07] LABS: HEMATOCRIT 35.1 % (42-54); MEAN CORPUSCULAR HEMOGLOBIN 30.2 pg (27.0-33.0); MEAN CORPUSCULAR HGB CONC 31.6 g/dL (32.0-36.0); MEAN CORPUSCULAR VOLUME 95.4 fL (79-99); RED BLOOD CELL COUNT(AUTO) 3.68 MIL/uL (4.50-6.20); RED CELL DISTRIBUTION WIDTH 12.6 % (11.0-15.5); WHITE BLOOD COUNT (AUTO) 11.7 K/uL (4.8-10.8)
[2021-08-03 04:20] LABS: CREATININE 1.4 mg/dL (0.5-1.5); POTASSIUM 4.9 mmol/L (3.5-5.1)
[2021-08-03 04:28] LABS: CRP QUANTITATIVE 193.4 mg/L (0.00-9.0)
[2021-08-03] MEDS: CISATRACURIUM BESYLATE 100 MG in 0.9%NACL 100ML 100 ML IV SCH ×4 (04:33→17:58)
[2021-08-03] MEDS: INSULIN HUMULIN R 100 UNIT/ML 3ML SQ SCH ×3 (05:50→17:27)
[2021-08-03] MEDS: CHLORHEXIDINE GLUCONATE 473 ML MOUTHWASH MM SCH ×3 (05:51→17:57)
[2021-08-03] MEDS: FUROSEMIDE 40MG VIAL IV SCH ×2 (08:47→21:01)
[2021-08-03] MEDS: FAMOTIDINE 20MG VIAL IV SCH ×2 (08:47→21:01)
[2021-08-03] MEDS: ENOXAPARIN SODIUM 80 MG/0.8 ML SQ SCH ×2 (08:48→21:02)
[2021-08-03] MEDS: BARICITINIB (EUA) 2 MG TABLET PO SCH (08:52)
[2021-08-03] MEDS: MIDAZOLAM 100MG-0.9% NS 100ML 100ML BAG IV SCH (09:25)
[2021-08-03] MEDS: FENTANYL 2500MCG+NS 250ML 250 ML IV SCH ×2 (09:26→18:58)
[2021-08-03 09:42] LABS: ABG BASE EXCESS 4.2 mmol/L (-2.0-3.0); ABG HCO3 35.3 mmol/L (21.0-28.0); ABG OXYGEN SATURATION 92.5 % (95.0-99.0); ABG PCO2 88 mmHg (35-48)
[2021-08-03] MEDS: ETOMIDATE 20MG VIAL IVP SCH (11:15)
[2021-08-03] MEDS: MIDAZOLAM HCL 1 MG/ML 2ML VIAL IVP SCH (11:47)
[2021-08-03] MEDS: FENTANYL CITRATE PF 50 MCG/1 ML 2ML VIAL IVP SCH (11:47)
[2021-08-03] MEDS ORDERED: VANCOMYCIN 1G 1.5 GM in 0.9% NACL 250ML 250 ML IV SCH (21:30)
[2021-08-03] MEDS ORDERED: VANCOMYCIN PROTOCOL PER PHARMACY IV SCH (21:30)
[2021-08-03] MEDS: ZOSYN 3.375GM+NS 50ML 50 ML IV SCH (21:30)
[2021-08-03] MEDS ORDERED: ZOSYN 3.375GM+NS 50ML 50 ML ONE (21:50)
[2021-08-03] MEDS ORDERED: 0.9%NACL 50ML 50 ML IV ONE (21:53)
[2021-08-04] VITALS (42 sets, daily range): BP systolic 115–168; BP diastolic 46–99
[2021-08-04] MEDS ORDERED: FLUCONAZOLE 200 MG/NS 100 ML 100 ML ONE ×2 (00:19→08:54)
[2021-08-04] MEDS: FLUCONAZOLE 400 MG/NS 200 ML 200 ML IV SCH ×2 (00:22→09:19)
[2021-08-04] MEDS: CHLORHEXIDINE GLUCONATE 473 ML MOUTHWASH MM SCH ×4 (00:23→17:07)
[2021-08-04] MEDS: INSULIN HUMULIN R 100 UNIT/ML 3ML SQ SCH ×4 (00:24→17:22)
[2021-08-04] MEDS: MIDAZOLAM HCL 1 MG/ML 2ML VIAL IVP SCH (00:47)
[2021-08-04] MEDS: SOLU-MEDROL 40MG VIAL IVP SCH ×3 (02:23→16:58)
[2021-08-04] MEDS: CISATRACURIUM BESYLATE 100 MG in 0.9%NACL 100ML 100 ML IV SCH ×4 (02:23→17:07)
[2021-08-04 03:55] LABS: ABG BASE EXCESS 10.3 mmol/L (-2.0-3.0); ABG HCO3 38.9 mmol/L (21.0-28.0); ABG OXYGEN SATURATION 88.9 % (95.0-99.0); ABG PCO2 70 mmHg (35-48)
[2021-08-04 04:35] LABS: HEMATOCRIT 33.7 % (42-54); MEAN CORPUSCULAR HEMOGLOBIN 29.7 pg (27.0-33.0); MEAN CORPUSCULAR HGB CONC 30.3 g/dL (32.0-36.0); PLATELET COUNT (AUTO) 332 K/uL (130-400); RED BLOOD CELL COUNT(AUTO) 3.44 MIL/uL (4.50-6.20); RED CELL DISTRIBUTION WIDTH 12.4 % (11.0-15.5); WHITE BLOOD COUNT (AUTO) 6.9 K/uL (4.8-10.8)
[2021-08-04 04:42] LABS: CREATININE 1.4 mg/dL (0.5-1.5); CRP QUANTITATIVE 75.4 mg/L (0.00-9.0); POTASSIUM 4.7 mmol/L (3.5-5.1)
[2021-08-04] MEDS: ZOSYN 3.375GM+NS 50ML 50 ML IV SCH ×3 (06:02→20:55)
[2021-08-04] MEDS ORDERED: COMPOUND IV REFRIGERATED 1 EACH IVSOLN MISC PRN (06:30)
[2021-08-04] MEDS: FENTANYL 2500MCG+NS 250ML 250 ML IV SCH (07:34)
[2021-08-04] MEDS: FUROSEMIDE 40MG VIAL IV SCH ×2 (07:53→20:54)
[2021-08-04] MEDS: BARICITINIB (EUA) 2 MG TABLET PO SCH (07:53)
[2021-08-04] MEDS: FAMOTIDINE 20MG VIAL IV SCH ×2 (07:53→20:54)
[2021-08-04] MEDS: ENOXAPARIN SODIUM 80 MG/0.8 ML SQ SCH ×2 (07:55→20:55)
[2021-08-04] MEDS: VANCOMYCIN 1.5GM/NS 250ML IV SCH ×2 (08:57)
[2021-08-04] MEDS: ETOMIDATE 20MG VIAL IVP SCH (10:06)
[2021-08-04] MEDS: FENTANYL CITRATE PF 50 MCG/1 ML 2ML VIAL IVP SCH ×2 (10:06→20:55)
[2021-08-04] MEDS: MIDAZOLAM 100MG-0.9% NS 100ML 100ML BAG IV SCH (10:24)
[2021-08-04] MEDS: DIAZEPAM 5 MG/ML 2 ML SYG IV PRN ×2 (11:00→20:56)
[2021-08-04] MEDS ORDERED: 0.9%NACL 50ML 50 ML IV ONE (12:49)
[2021-08-05] VITALS (22 sets, daily range): BP systolic 94–141; BP diastolic 61–87
[2021-08-05] MEDS: SOLU-MEDROL 40MG VIAL IVP SCH ×3 (00:44→18:13)
[2021-08-05] MEDS: INSULIN HUMULIN R 100 UNIT/ML 3ML SQ SCH ×4 (00:44→18:14)
[2021-08-05] MEDS: CHLORHEXIDINE GLUCONATE 473 ML MOUTHWASH MM SCH ×4 (00:44→18:13)
[2021-08-05] MEDS: CISATRACURIUM BESYLATE 100 MG in 0.9%NACL 100ML 100 ML IV SCH ×2 (00:51→09:32)
[2021-08-05] MEDS: MIDAZOLAM HCL 1 MG/ML 2ML VIAL IVP SCH (00:51)
[2021-08-05 03:58] LABS: LYMPHOCYTES % (AUTO) 2.8 % (21.0-51.0); MEAN CORPUSCULAR HEMOGLOBIN 30.1 pg (27.0-33.0); MEAN CORPUSCULAR HGB CONC 31.1 g/dL (32.0-36.0); MEAN CORPUSCULAR VOLUME 96.7 fL (79-99); MONOCYTES % (AUTO) 5.4 % (3.0-13.0); NEUTROPHILS % (AUTO) 90.5 % (40.0-77.0); PLATELET COUNT (AUTO) 317 K/uL (130-400); RED BLOOD CELL COUNT(AUTO) 3.62 MIL/uL (4.50-6.20); RED CELL DISTRIBUTION WIDTH 12.6 % (11.0-15.5); WHITE BLOOD COUNT (AUTO) 5.4 K/uL (4.8-10.8)
[2021-08-05 04:12] LABS: ALBUMIN 2.3 g/dL (3.5-5.0); BILIRUBIN,TOTAL 0.4 mg/dL (0.2-1.0); CREATININE 1.4 mg/dL (0.5-1.5); CRP QUANTITATIVE 38.1 mg/L (0.00-9.0); PHOSPHORUS 3.5 mg/dL (2.5-4.9); POTASSIUM 4.7 mmol/L (3.5-5.1); TOTAL PROTEIN, SERUM 6.5 g/dL (6.0-8.3)
[2021-08-05] MEDS: ZOSYN 3.375GM+NS 50ML 50 ML IV SCH ×3 (05:43→21:10)
[2021-08-05 07:12] LABS: ABG BASE EXCESS 10.9 mmol/L (-2.0-3.0); ABG HCO3 39.4 mmol/L (21.0-28.0); ABG OXYGEN SATURATION 85.7 % (95.0-99.0); ABG PCO2 69 mmHg (35-48)
[2021-08-05] MEDS: VANCOMYCIN 1.5GM/NS 250ML IV SCH ×2 (09:00)
[2021-08-05] MEDS: FLUCONAZOLE 400 MG/NS 200 ML 200 ML IV SCH (09:24)
[2021-08-05] MEDS: ENOXAPARIN SODIUM 80 MG/0.8 ML SQ SCH ×2 (09:25→21:10)
[2021-08-05] MEDS: FUROSEMIDE 40MG VIAL IV SCH ×2 (09:25→21:07)
[2021-08-05] MEDS: ETOMIDATE 20MG VIAL IVP SCH (09:26)
[2021-08-05] MEDS: FAMOTIDINE 20MG VIAL IV SCH ×2 (09:26→21:07)
[2021-08-05] MEDS: BARICITINIB (EUA) 2 MG TABLET PO SCH (09:26)
[2021-08-05] MEDS: MIDAZOLAM 100MG-0.9% NS 100ML 100ML BAG IV SCH (09:30)
[2021-08-05] MEDS: FENTANYL 2500MCG+NS 250ML 250 ML IV SCH (10:21)
[2021-08-05] MEDS: DIAZEPAM 5 MG TABLET PO SCH (20:00)
[2021-08-05] MEDS ORDERED: 0.9%NACL 50ML 50 ML IV ONE (20:25)
[2021-08-05] MEDS: INSULIN GLARGINE 100 UNITS/ML 10 ML VIAL SQ SCH (21:09)
[2021-08-06] VITALS (33 sets, daily range): BP systolic 108–145; BP diastolic 67–92
[2021-08-06] MEDS: CISATRACURIUM BESYLATE 100 MG in 0.9%NACL 100ML 100 ML IV SCH ×7 (01:43→23:58)
[2021-08-06] MEDS: CHLORHEXIDINE GLUCONATE 473 ML MOUTHWASH MM SCH ×4 (01:43→17:25)
[2021-08-06] MEDS: SOLU-MEDROL 40MG VIAL IVP SCH ×3 (01:43→17:32)
[2021-08-06] MEDS: INSULIN HUMULIN R 100 UNIT/ML 3ML SQ SCH ×4 (01:43→17:25)
[2021-08-06] MEDS: MIDAZOLAM 100MG-0.9% NS 100ML 100ML BAG IV SCH ×2 (01:45→11:22)
[2021-08-06] MEDS: FENTANYL 2500MCG+NS 250ML 250 ML IV SCH ×3 (01:45→17:37)
[2021-08-06] MEDS: DIAZEPAM 5 MG TABLET PO SCH ×3 (04:00→21:03)
[2021-08-06 04:44] LABS: HEMATOCRIT 34.9 % (42-54); LYMPHOCYTES % (AUTO) 2.4 % (21.0-51.0); MEAN CORPUSCULAR HEMOGLOBIN 29.8 pg (27.0-33.0); MEAN CORPUSCULAR HGB CONC 30.7 g/dL (32.0-36.0); MEAN CORPUSCULAR VOLUME 97.2 fL (79-99); MONOCYTES % (AUTO) 5.3 % (3.0-13.0); NEUTROPHILS % (AUTO) 90.6 % (40.0-77.0); PLATELET COUNT (AUTO) 292 K/uL (130-400); RED BLOOD CELL COUNT(AUTO) 3.59 MIL/uL (4.50-6.20); RED CELL DISTRIBUTION WIDTH 12.4 % (11.0-15.5); WHITE BLOOD COUNT (AUTO) 5.3 K/uL (4.8-10.8)
[2021-08-06 05:25] LABS: ALBUMIN 2.4 g/dL (3.5-5.0); BILIRUBIN,TOTAL 0.3 mg/dL (0.2-1.0); CREATININE 1.3 mg/dL (0.5-1.5); CRP QUANTITATIVE 16.5 mg/L (0.00-9.0); POTASSIUM 4.7 mmol/L (3.5-5.1); TOTAL PROTEIN, SERUM 6.3 g/dL (6.0-8.3)
[2021-08-06] MEDS: ZOSYN 3.375GM+NS 50ML 50 ML IV SCH ×3 (05:50→21:05)
[2021-08-06] MEDS: INSULIN GLARGINE 100 UNITS/ML 10 ML VIAL SQ SCH ×2 (06:27→21:05)
[2021-08-06] MEDS: FENTANYL CITRATE PF 50 MCG/1 ML 2ML VIAL IVP SCH (08:11)
[2021-08-06] MEDS: ETOMIDATE 20MG VIAL IVP SCH (08:11)
[2021-08-06] MEDS: MIDAZOLAM HCL 1 MG/ML 2ML VIAL IVP SCH (08:12)
[2021-08-06] MEDS: FAMOTIDINE 20MG VIAL IV SCH ×2 (08:21→21:03)
[2021-08-06] MEDS: BARICITINIB (EUA) 2 MG TABLET PO SCH (08:21)
[2021-08-06] MEDS: FLUCONAZOLE 400 MG/NS 200 ML 200 ML IV SCH (08:21)
[2021-08-06] MEDS: ENOXAPARIN SODIUM 80 MG/0.8 ML SQ SCH ×2 (08:22→21:03)
[2021-08-06] MEDS: FUROSEMIDE 40MG VIAL IV SCH ×2 (08:22→21:03)
[2021-08-06] MEDS: VANCOMYCIN 1.5GM/NS 250ML IV SCH ×2 (08:27)
[2021-08-06] MEDS ORDERED: PHARMACY COMMUNICATION MISC SCH ×2 (10:50→17:30)
[2021-08-06] MEDS ORDERED: ROCURONIUM BROMIDE 10MG/1ML 5ML VL IV SCH (11:30)
[2021-08-07] VITALS (38 sets, daily range): BP systolic 125–183; BP diastolic 72–103
[2021-08-07] MEDS: CHLORHEXIDINE GLUCONATE 473 ML MOUTHWASH MM SCH ×5 (00:42→23:22)
[2021-08-07] MEDS: INSULIN HUMULIN R 100 UNIT/ML 3ML SQ SCH ×5 (00:53→23:24)
[2021-08-07] MEDS: DIAZEPAM 5 MG TABLET PO SCH ×2 (04:00→22:45)
[2021-08-07] MEDS: CISATRACURIUM BESYLATE 100 MG in 0.9%NACL 100ML 100 ML IV SCH ×5 (04:07→22:15)
[2021-08-07] MEDS: ZOSYN 3.375GM+NS 50ML 50 ML IV SCH ×3 (06:36→22:48)
[2021-08-07] MEDS: SOLU-MEDROL 40MG VIAL IVP SCH ×2 (06:36→17:06)
[2021-08-07] MEDS: INSULIN GLARGINE 100 UNITS/ML 10 ML VIAL SQ SCH ×2 (06:37→22:47)
[2021-08-07 07:22] LABS: ABG BASE EXCESS 12.9 mmol/L (-2.0-3.0); ABG PCO2 83 mmHg (35-48)
[2021-08-07 08:15] LABS: HEMATOCRIT 38.2 % (42-54); LYMPHOCYTES % (AUTO) 4.9 % (21.0-51.0); MEAN CORPUSCULAR HEMOGLOBIN 29.8 pg (27.0-33.0); MEAN CORPUSCULAR HGB CONC 30.6 g/dL (32.0-36.0); MEAN CORPUSCULAR VOLUME 97.2 fL (79-99); MONOCYTES % (AUTO) 4.1 % (3.0-13.0); PLATELET COUNT (AUTO) 285 K/uL (130-400); RED BLOOD CELL COUNT(AUTO) 3.93 MIL/uL (4.50-6.20); RED CELL DISTRIBUTION WIDTH 12.3 % (11.0-15.5); WHITE BLOOD COUNT (AUTO) 6.2 K/uL (4.8-10.8)
[2021-08-07] MEDS: FAMOTIDINE 20MG VIAL IV SCH ×2 (08:22→22:46)
[2021-08-07] MEDS: FUROSEMIDE 40MG VIAL IV SCH ×2 (08:22→22:46)
[2021-08-07] MEDS: ENOXAPARIN SODIUM 80 MG/0.8 ML SQ SCH ×2 (08:22→22:47)
[2021-08-07] MEDS: FENTANYL 2500MCG+NS 250ML 250 ML IV SCH ×2 (08:24→14:15)
[2021-08-07 08:30] LABS: ALBUMIN 2.6 g/dL (3.5-5.0); BILIRUBIN,TOTAL 0.5 mg/dL (0.2-1.0); CREATININE 1.3 mg/dL (0.5-1.5); CRP QUANTITATIVE 4.8 mg/L (0.00-9.0); POTASSIUM 4.8 mmol/L (3.5-5.1); TOTAL PROTEIN, SERUM 6.6 g/dL (6.0-8.3)
[2021-08-07] MEDS ORDERED: PROPOFOL 1000 MG/100 ML IV PRN (10:00)
[2021-08-07] MEDS: VANCOMYCIN 1.5GM/NS 250ML IV SCH ×2 (10:49)
[2021-08-07] MEDS: FLUCONAZOLE 400 MG/NS 200 ML 200 ML IV SCH (10:49)
[2021-08-07] MEDS: MIDAZOLAM 100MG-0.9% NS 100ML 100ML BAG IV SCH ×3 (10:50→21:42)
[2021-08-07] MEDS: ETOMIDATE 20MG VIAL IVP SCH (11:15)
[2021-08-07] MEDS: FENTANYL CITRATE PF 50 MCG/1 ML 2ML VIAL IVP SCH (11:40)
[2021-08-07] MEDS: MIDAZOLAM HCL 1 MG/ML 2ML VIAL IVP SCH (11:41)
[2021-08-07] MEDS ORDERED: METHADONE HCL 10 MG TABLET PO PRN (12:30)
[2021-08-07] MEDS: PROPOFOL 1000 MG/100 ML 100 ML IV PRN ×3 (14:24→22:13)
[2021-08-08] VITALS (23 sets, daily range): BP systolic 97–138; BP diastolic 47–74
[2021-08-08] MEDS: CISATRACURIUM BESYLATE 100 MG in 0.9%NACL 100ML 100 ML IV SCH ×7 (00:02→22:48)
[2021-08-08] MEDS: MIDAZOLAM 100MG-0.9% NS 100ML 100ML BAG IV SCH ×5 (01:46→23:35)
[2021-08-08] MEDS: FENTANYL 2500MCG+NS 250ML 250 ML IV SCH ×3 (01:47→19:54)
[2021-08-08] MEDS: PROPOFOL 1000 MG/100 ML 100 ML IV PRN ×7 (02:43→23:53)
[2021-08-08] MEDS ORDERED: 0.9%NACL 50ML 50 ML IV ONE (04:43)
[2021-08-08] MEDS: DIAZEPAM 5 MG TABLET PO SCH ×3 (04:48→20:07)
[2021-08-08] MEDS: SOLU-MEDROL 40MG VIAL IVP SCH ×2 (04:49→16:51)
[2021-08-08] MEDS: ZOSYN 3.375GM+NS 50ML 50 ML IV SCH ×3 (04:49→20:10)
[2021-08-08] MEDS: CHLORHEXIDINE GLUCONATE 473 ML MOUTHWASH MM SCH ×4 (05:12→23:58)
[2021-08-08] MEDS: INSULIN HUMULIN R 100 UNIT/ML 3ML SQ SCH ×3 (06:24→18:24)
[2021-08-08 06:40] LABS: HEMATOCRIT 32.5 % (42-54); MEAN CORPUSCULAR HEMOGLOBIN 29.9 pg (27.0-33.0); MEAN CORPUSCULAR HGB CONC 30.5 g/dL (32.0-36.0); MEAN CORPUSCULAR VOLUME 98.2 fL (79-99); RED BLOOD CELL COUNT(AUTO) 3.31 MIL/uL (4.50-6.20); RED CELL DISTRIBUTION WIDTH 12.5 % (11.0-15.5); WHITE BLOOD COUNT (AUTO) 7.5 K/uL (4.8-10.8)
[2021-08-08 07:03] LABS: ALBUMIN 2.2 g/dL (3.5-5.0); BILIRUBIN,TOTAL 0.4 mg/dL (0.2-1.0); CREATININE 1.3 mg/dL (0.5-1.5); POTASSIUM 4.2 mmol/L (3.5-5.1); TOTAL PROTEIN, SERUM 5.6 g/dL (6.0-8.3)
[2021-08-08 07:34] LABS: ABG HCO3 42.4 mmol/L (21.0-28.0); ABG OXYGEN SATURATION 90.7 % (95.0-99.0); ABG PCO2 69 mmHg (35-48)
[2021-08-08] MEDS ORDERED: NACL 0.9% IV SCH (08:23)
[2021-08-08] MEDS ORDERED: CISATRACURIUM BESYLATE IV SCH (08:23)
[2021-08-08] MEDS: FUROSEMIDE 40MG VIAL IV SCH (08:39)
[2021-08-08] MEDS: FAMOTIDINE 20MG VIAL IV SCH ×2 (08:39→20:10)
[2021-08-08] MEDS: FLUCONAZOLE 400 MG/NS 200 ML 200 ML IV SCH (08:39)
[2021-08-08] MEDS: ENOXAPARIN SODIUM 80 MG/0.8 ML SQ SCH ×2 (08:40→20:09)
[2021-08-08] MEDS: INSULIN GLARGINE 100 UNITS/ML 10 ML VIAL SQ SCH ×2 (08:48→20:12)
[2021-08-08] MEDS: VANCOMYCIN 1.5GM/NS 250ML IV SCH ×2 (11:12)
[2021-08-08] MEDS: ETOMIDATE 20MG VIAL IVP SCH (11:15)
[2021-08-09] VITALS (24 sets, daily range): BP systolic 105–132; BP diastolic 51–71
[2021-08-09] MEDS: INSULIN HUMULIN R 100 UNIT/ML 3ML SQ SCH ×4 (00:19→18:00)
[2021-08-09] MEDS: CISATRACURIUM BESYLATE 100 MG in 0.9%NACL 100ML 100 ML IV SCH ×9 (02:14→22:55)
[2021-08-09] MEDS: PROPOFOL 1000 MG/100 ML 100 ML IV PRN ×9 (02:15→23:10)
[2021-08-09] MEDS: DIAZEPAM 5 MG TABLET PO SCH ×3 (03:59→19:38)
[2021-08-09] MEDS: MIDAZOLAM 100MG-0.9% NS 100ML 100ML BAG IV SCH ×3 (04:19→19:35)
[2021-08-09] MEDS: FENTANYL 2500MCG+NS 250ML 250 ML IV SCH ×2 (04:19→19:34)
[2021-08-09] MEDS: ZOSYN 3.375GM+NS 50ML 50 ML IV SCH ×3 (04:36→21:22)
[2021-08-09] MEDS: SOLU-MEDROL 40MG VIAL IVP SCH ×2 (04:36→17:53)
[2021-08-09] MEDS: CHLORHEXIDINE GLUCONATE 473 ML MOUTHWASH MM SCH ×4 (04:49→23:10)
[2021-08-09 06:43] LABS: EOSINOPHILS % (AUTO) 0.1 % (0.0-8.0); HEMATOCRIT 31.8 % (42-54); LYMPHOCYTES % (AUTO) 2.1 % (21.0-51.0); MEAN CORPUSCULAR HEMOGLOBIN 29.8 pg (27.0-33.0); MEAN CORPUSCULAR HGB CONC 29.9 g/dL (32.0-36.0); MEAN CORPUSCULAR VOLUME 99.7 fL (79-99); MONOCYTES % (AUTO) 2.7 % (3.0-13.0); NEUTROPHILS % (AUTO) 93.1 % (40.0-77.0); PLATELET COUNT (AUTO) 200 K/uL (130-400); RED BLOOD CELL COUNT(AUTO) 3.19 MIL/uL (4.50-6.20); RED CELL DISTRIBUTION WIDTH 12.5 % (11.0-15.5)
[2021-08-09 07:04] LABS: ALANINE AMINOTRANSFERASE 67 U/L (12-78); ALBUMIN 2.1 g/dL (3.5-5.0); ASPARTATE AMINOTRANSFERASE 29 U/L (10-37); BILIRUBIN,TOTAL 0.4 mg/dL (0.2-1.0); CARBON DIOXIDE 42 mmol/L (21-32); CHLORIDE 111 mmol/L (101-111); GLOMERULAR FILTR. RATE CALC 81 mL/min (>60); GLUCOSE,RANDOM 260 mg/dL (70-105); POTASSIUM 4.4 mmol/L (3.5-5.1); SODIUM SERUM 152 mmol/L (136-145); TOTAL PROTEIN, SERUM 5.3 g/dL (6.0-8.3); UREA NITROGEN, BLOOD 51 mg/dL (7-18)
[2021-08-09 07:12] LABS: CRP QUANTITATIVE < 2.00 mg/L (0.00-9.0)
[2021-08-09 07:25] LABS: ABG BASE EXCESS 12.5 mmol/L (-2.0-3.0); ABG HCO3 42.2 mmol/L (21.0-28.0); ABG PCO2 79 mmHg (35-48)
[2021-08-09] MEDS: ETOMIDATE 20MG VIAL IVP SCH (08:18)
[2021-08-09] MEDS: VANCOMYCIN 1.5GM/NS 250ML IV SCH ×2 (09:00)
[2021-08-09] MEDS: FAMOTIDINE 20MG VIAL IV SCH ×2 (09:21→21:24)
[2021-08-09] MEDS: FUROSEMIDE 40MG VIAL IV SCH (09:22)
[2021-08-09] MEDS: INSULIN GLARGINE 100 UNITS/ML 10 ML VIAL SQ SCH ×2 (09:23→21:24)
[2021-08-09] MEDS: ENOXAPARIN SODIUM 80 MG/0.8 ML SQ SCH ×2 (09:23→21:22)
[2021-08-09] MEDS: FLUCONAZOLE 400 MG/NS 200 ML 200 ML IV SCH (09:24)
[2021-08-09] MEDS ORDERED: VANCOMYCIN 1.5GM/NS 250ML IV SCH ×2 (12:30)
[2021-08-09] MEDS: VANCOMYCIN 500MG+NS 100ML IVPB IV SCH (21:30)
[2021-08-10] VITALS (36 sets, daily range): BP systolic 110–134; BP diastolic 60–79
[2021-08-10] MEDS: INSULIN HUMULIN R 100 UNIT/ML 3ML SQ SCH ×4 (00:26→18:20)
[2021-08-10] MEDS: MIDAZOLAM 100MG-0.9% NS 100ML 100ML BAG IV SCH ×4 (00:49→23:27)
[2021-08-10] MEDS: CISATRACURIUM BESYLATE 100 MG in 0.9%NACL 100ML 100 ML IV SCH ×10 (00:50→23:28)
[2021-08-10] MEDS: PROPOFOL 1000 MG/100 ML 100 ML IV PRN ×9 (01:20→22:01)
[2021-08-10] MEDS: DIAZEPAM 5 MG TABLET PO SCH ×3 (04:00→20:00)
[2021-08-10] MEDS: FENTANYL 2500MCG+NS 250ML 250 ML IV SCH ×3 (04:40→23:27)
[2021-08-10] MEDS: ZOSYN 3.375GM+NS 50ML 50 ML IV SCH ×3 (04:59→21:13)
[2021-08-10] MEDS: SOLU-MEDROL 40MG VIAL IVP SCH ×2 (04:59→16:31)
[2021-08-10] MEDS: CHLORHEXIDINE GLUCONATE 473 ML MOUTHWASH MM SCH ×3 (05:00→18:15)
[2021-08-10] MEDS: VANCOMYCIN 500MG+NS 100ML IVPB IV SCH ×3 (05:14→21:14)
[2021-08-10] MEDS: 0.9%NACL 100ML 100 ML IV SCH ×2 (05:14→14:19)
[2021-08-10 06:27] LABS: BASOPHILS % (AUTO) 0.1 % (0.0-5.0); EOSINOPHILS % (AUTO) 0.3 % (0.0-8.0); HEMATOCRIT 31.2 % (42-54); LYMPHOCYTES % (AUTO) 1.9 % (21.0-51.0); MEAN CORPUSCULAR HGB CONC 29.5 g/dL (32.0-36.0); MEAN CORPUSCULAR VOLUME 101.6 fL (79-99); MONOCYTES % (AUTO) 3.4 % (3.0-13.0); NEUTROPHILS % (AUTO) 92.5 % (40.0-77.0); PLATELET COUNT (AUTO) 186 K/uL (130-400); RED BLOOD CELL COUNT(AUTO) 3.07 MIL/uL (4.50-6.20); RED CELL DISTRIBUTION WIDTH 12.7 % (11.0-15.5); WHITE BLOOD COUNT (AUTO) 7.4 K/uL (4.8-10.8)
[2021-08-10 06:47] LABS: BILIRUBIN,TOTAL 0.5 mg/dL (0.2-1.0); CREATININE 0.9 mg/dL (0.5-1.5); CRP QUANTITATIVE 3.8 mg/L (0.00-9.0); POTASSIUM 4.6 mmol/L (3.5-5.1); TOTAL PROTEIN, SERUM 5.1 g/dL (6.0-8.3)
[2021-08-10 06:55] LABS: ABG BASE EXCESS 7.9 mmol/L (-2.0-3.0); ABG HCO3 36.7 mmol/L (21.0-28.0); ABG OXYGEN SATURATION 91.2 % (95.0-99.0); ABG PCO2 79 mmHg (35-48)
[2021-08-10] MEDS: ENOXAPARIN SODIUM 80 MG/0.8 ML SQ SCH ×2 (07:37→21:15)
[2021-08-10] MEDS: FUROSEMIDE 40MG VIAL IV SCH (07:38)
[2021-08-10] MEDS: FAMOTIDINE 20MG VIAL IV SCH ×2 (07:38→21:12)
[2021-08-10] MEDS: INSULIN GLARGINE 100 UNITS/ML 10 ML VIAL SQ SCH ×2 (07:39→21:13)
[2021-08-10] MEDS: FLUCONAZOLE 400 MG/NS 200 ML 200 ML IV SCH (07:55)
[2021-08-10] MEDS: METHADONE HCL 10 MG TABLET PO SCH ×3 (10:47→21:13)
[2021-08-10] MEDS ORDERED: MAGNESIUM CITRATE 296 ML SOLUTION PO SCH (11:00)
[2021-08-10 11:04] LABS: INR 1.1 (0.85-1.15); PROTHROMBIN TIME 11.9 SEC (9.6-11.6)
[2021-08-10 11:05] LABS: PARTIAL THROMBOPLASTIN TIME 24.8 SEC (26.3-35.5)
[2021-08-10] MEDS ORDERED: MAGNESIUM CITRATE 296 ML SOLUTION PO ONE (18:30)
[2021-08-11] VITALS (34 sets, daily range): BP systolic 105–133; BP diastolic 66–79
[2021-08-11] MEDS: CHLORHEXIDINE GLUCONATE 473 ML MOUTHWASH MM SCH ×4 (00:13→17:45)
[2021-08-11] MEDS: PROPOFOL 1000 MG/100 ML 100 ML IV PRN ×10 (00:37→22:26)
[2021-08-11] MEDS: INSULIN HUMULIN R 100 UNIT/ML 3ML SQ SCH ×4 (00:39→18:14)
[2021-08-11] MEDS: CISATRACURIUM BESYLATE 100 MG in 0.9%NACL 100ML 100 ML IV SCH ×8 (02:01→22:56)
[2021-08-11] MEDS: METHADONE HCL 10 MG TABLET PO SCH ×4 (03:30→21:14)
[2021-08-11] MEDS: DIAZEPAM 5 MG TABLET PO SCH ×3 (03:45→21:14)
[2021-08-11] MEDS: ZOSYN 3.375GM+NS 50ML 50 ML IV SCH (05:32)
[2021-08-11] MEDS: VANCOMYCIN 500MG+NS 100ML IVPB IV SCH (05:33)
[2021-08-11] MEDS: 0.9%NACL 100ML 100 ML IV SCH (05:33)
[2021-08-11] MEDS: SOLU-MEDROL 40MG VIAL IVP SCH ×2 (05:33→17:44)
[2021-08-11 06:45] LABS: BASOPHILS % (AUTO) 0.1 % (0.0-5.0); HEMATOCRIT 29.2 % (42-54); LYMPHOCYTES % (AUTO) 5.8 % (21.0-51.0); MEAN CORPUSCULAR HEMOGLOBIN 30.3 pg (27.0-33.0); MEAN CORPUSCULAR HGB CONC 30.1 g/dL (32.0-36.0); MEAN CORPUSCULAR VOLUME 100.7 fL (79-99); MONOCYTES % (AUTO) 2.3 % (3.0-13.0); NEUTROPHILS % (AUTO) 87.7 % (40.0-77.0); NUCLEATED RED BLOOD CELLS 0.6 % (0.0-0.19); PLATELET COUNT (AUTO) 173 K/uL (130-400); RED CELL DISTRIBUTION WIDTH 12.9 % (11.0-15.5)
[2021-08-11] MEDS: FENTANYL 2500MCG+NS 250ML 250 ML IV SCH ×3 (06:59→22:26)
[2021-08-11 07:23] LABS: ALBUMIN 1.9 g/dL (3.5-5.0); BILIRUBIN,TOTAL 0.4 mg/dL (0.2-1.0); CREATININE 0.9 mg/dL (0.5-1.5); CRP QUANTITATIVE 4.8 mg/L (0.00-9.0); POTASSIUM 3.9 mmol/L (3.5-5.1); TOTAL PROTEIN, SERUM 4.9 g/dL (6.0-8.3)
[2021-08-11] MEDS: FUROSEMIDE 40MG VIAL IV SCH (07:59)
[2021-08-11] MEDS: ENOXAPARIN SODIUM 80 MG/0.8 ML SQ SCH ×2 (07:59→21:14)
[2021-08-11] MEDS: FAMOTIDINE 20MG VIAL IV SCH ×2 (07:59→21:14)
[2021-08-11] MEDS: POTASSIUM CHLORIDE 10% ELIXIR 20 MEQ/15 ML UDCUP PO PRN (08:00)
[2021-08-11] MEDS: MIDAZOLAM 100MG-0.9% NS 100ML 100ML BAG IV SCH ×3 (08:08→18:38)
[2021-08-11] MEDS ORDERED: INSULIN GLARGINE 100 UNITS/ML 10 ML VIAL SQ SCH (08:30)
[2021-08-11] MEDS: INSULIN GLARGINE 100 UNITS/ML 10 ML VIAL SQ SCH (21:53)
[2021-08-12] VITALS (20 sets, daily range): BP systolic 92–129; BP diastolic 51–79
[2021-08-12] MEDS: CHLORHEXIDINE GLUCONATE 473 ML MOUTHWASH MM SCH ×5 (00:04→23:56)
[2021-08-12] MEDS: INSULIN HUMULIN R 100 UNIT/ML 3ML SQ SCH ×5 (00:22→23:57)
[2021-08-12] MEDS: CISATRACURIUM BESYLATE 100 MG in 0.9%NACL 100ML 100 ML IV SCH ×6 (00:26→22:32)
[2021-08-12] MEDS: PROPOFOL 1000 MG/100 ML 100 ML IV PRN ×9 (03:37→23:02)
[2021-08-12 03:53] LABS: ABG BASE EXCESS 13.3 mmol/L (-2.0-3.0); ABG OXYGEN SATURATION 92.6 % (95.0-99.0); ABG PCO2 85 mmHg (35-48)
[2021-08-12] MEDS: METHADONE HCL 10 MG TABLET PO SCH ×4 (03:53→20:30)
[2021-08-12] MEDS: DIAZEPAM 5 MG TABLET PO SCH ×3 (03:53→19:43)
[2021-08-12] MEDS: SOLU-MEDROL 40MG VIAL IVP SCH ×2 (04:13→17:30)
[2021-08-12] MEDS: FENTANYL 2500MCG+NS 250ML 250 ML IV SCH ×3 (05:42→23:01)
[2021-08-12 06:46] LABS: MEAN CORPUSCULAR HEMOGLOBIN 29.8 pg (27.0-33.0); MEAN CORPUSCULAR HGB CONC 30.3 g/dL (32.0-36.0); MEAN CORPUSCULAR VOLUME 98.2 fL (79-99); NUCLEATED RED BLOOD CELLS 1.1 % (0.0-0.19); RED BLOOD CELL COUNT(AUTO) 3.26 MIL/uL (4.50-6.20); RED CELL DISTRIBUTION WIDTH 19.1 % (11.0-15.5); WHITE BLOOD COUNT (AUTO) 10.8 K/uL (4.8-10.8)
[2021-08-12 07:12] LABS: CREATININE 0.6 mg/dL (0.5-1.5); CRP QUANTITATIVE 71.3 mg/L (0.00-9.0); POTASSIUM 4.5 mmol/L (3.5-5.1)
[2021-08-12] MEDS: FUROSEMIDE 40MG VIAL IV SCH (07:56)
[2021-08-12] MEDS: FAMOTIDINE 20MG VIAL IV SCH ×2 (07:56→20:30)
[2021-08-12] MEDS: INSULIN GLARGINE 100 UNITS/ML 10 ML VIAL SQ SCH ×2 (07:57→20:31)
[2021-08-12] MEDS: ENOXAPARIN SODIUM 80 MG/0.8 ML SQ SCH ×2 (08:01→20:30)
[2021-08-12] MEDS: ACETAMINOPHEN 325 MG TAB PO PRN (10:33)
[2021-08-12] MEDS: ATORVASTATIN 40 MG TABLET NG SCH (20:30)
[2021-08-13] VITALS (24 sets, daily range): BP systolic 95–124; BP diastolic 53–72
[2021-08-13] MEDS: CISATRACURIUM BESYLATE 100 MG in 0.9%NACL 100ML 100 ML IV SCH ×7 (01:17→22:06)
[2021-08-13] MEDS: PROPOFOL 1000 MG/100 ML 100 ML IV PRN ×9 (02:27→23:21)
[2021-08-13] MEDS: METHADONE HCL 10 MG TABLET PO SCH ×5 (02:28→23:51)
[2021-08-13] MEDS: MIDAZOLAM 100MG-0.9% NS 100ML 100ML BAG IV SCH ×2 (04:00→15:39)
[2021-08-13 04:41] LABS: HEMATOCRIT 26.6 % (42-54); MEAN CORPUSCULAR HGB CONC 30.5 g/dL (32.0-36.0); MEAN CORPUSCULAR VOLUME 101.9 fL (79-99); NUCLEATED RED BLOOD CELLS 3.7 % (0.0-0.19); RED BLOOD CELL COUNT(AUTO) 2.61 MIL/uL (4.50-6.20); RED CELL DISTRIBUTION WIDTH 13.5 % (11.0-15.5); WHITE BLOOD COUNT (AUTO) 9.3 K/uL (4.8-10.8)
[2021-08-13] MEDS: DIAZEPAM 5 MG TABLET PO SCH ×4 (04:45→23:20)
[2021-08-13] MEDS: ACETAMINOPHEN 325 MG TAB PO PRN ×2 (04:46→11:55)
[2021-08-13] MEDS: SOLU-MEDROL 40MG VIAL IVP SCH ×2 (04:46→16:45)
[2021-08-13 04:48] LABS: CREATININE 0.9 mg/dL (0.5-1.5); CRP QUANTITATIVE 13.2 mg/L (0.00-9.0); POTASSIUM 5.2 mmol/L (3.5-5.1)
[2021-08-13] MEDS: CHLORHEXIDINE GLUCONATE 473 ML MOUTHWASH MM SCH ×4 (05:44→23:20)
[2021-08-13] MEDS: INSULIN HUMULIN R 100 UNIT/ML 3ML SQ SCH ×4 (05:58→23:50)
[2021-08-13] MEDS: INSULIN GLARGINE 100 UNITS/ML 10 ML VIAL SQ SCH ×3 (05:58→19:57)
[2021-08-13] MEDS ORDERED: CALCIUM GLUC 1GM/10ML VIAL IV SCH (07:30)
[2021-08-13] MEDS: CALCIUM GLUC 1GM 1 GM in 0.9%NACL 100ML 100 ML IV SCH ×2 (08:05→23:22)
[2021-08-13] MEDS: SODIUM BICARB 50MEQ 50ML VIAL IV SCH (08:52)
[2021-08-13] MEDS: FUROSEMIDE 40MG VIAL IV SCH (08:54)
[2021-08-13] MEDS: FAMOTIDINE 20MG VIAL IV SCH ×2 (08:54→19:54)
[2021-08-13] MEDS: ENOXAPARIN SODIUM 80 MG/0.8 ML SQ SCH ×2 (08:55→19:56)
[2021-08-13] MEDS: FENTANYL 2500MCG+NS 250ML 250 ML IV SCH (11:46)
[2021-08-13] MEDS ORDERED: ZOSYN 3.375GM+NS 50ML 3.38 GM in 0.9%NACL 50ML 50 ML IV SCH (13:00)
[2021-08-13] MEDS ORDERED: VANCOMYCIN PROTOCOL PER PHARMACY IV SCH (13:00)
[2021-08-13] MEDS: ZOSYN 3.375GM+NS 50ML 50 ML IV SCH ×2 (13:29→19:54)
[2021-08-13] MEDS ORDERED: DEXMEDETOMIDINE 400MCG/NS100ML IV SCH (14:00)
[2021-08-13] MEDS: VANCOMYCIN 1.5GM/NS 250ML IV SCH ×4 (14:05→23:51)
[2021-08-13] MEDS: DEXMEDETOMIDINE HCL 400 MCG in 0.9%NACL 100ML 100 ML IV SCH ×3 (15:25→21:02)
[2021-08-13] MEDS: ATORVASTATIN 40 MG TABLET NG SCH (19:57)
[2021-08-13] MEDS ORDERED: DEXMEDETOMIDINE 400MCG/NS100ML IV ONE (23:17)
[2021-08-13] MEDS ORDERED: PANTOPRAZOLE 40 MG/VIAL ONE (23:24)
[2021-08-14] VITALS (29 sets, daily range): BP systolic 79–167; BP diastolic 37–83
[2021-08-14] MEDS ORDERED: DEXMEDETOMIDINE 400MCG/NS100ML IV ONE ×9 (02:01→21:54)
[2021-08-14] MEDS: MIDAZOLAM 100MG-0.9% NS 100ML 100ML BAG IV SCH ×2 (02:17→14:45)
[2021-08-14] MEDS: PROPOFOL 1000 MG/100 ML 100 ML IV PRN ×2 (02:18→07:12)
[2021-08-14] MEDS: CISATRACURIUM BESYLATE 100 MG in 0.9%NACL 100ML 100 ML IV SCH ×5 (02:19→16:37)
[2021-08-14 03:29] LABS: ABG BASE EXCESS 11.5 mmol/L (-2.0-3.0); ABG HCO3 42.1 mmol/L (21.0-28.0); ABG OXYGEN SATURATION 91.6 % (95.0-99.0); ABG PCO2 86 mmHg (35-48)
[2021-08-14] MEDS: SOLU-MEDROL 40MG VIAL IVP SCH ×2 (04:15→16:37)
[2021-08-14] MEDS: ZOSYN 3.375GM+NS 50ML 50 ML IV SCH ×3 (04:15→21:00)
[2021-08-14] MEDS: DIAZEPAM 5 MG TABLET PO SCH ×3 (04:31→14:38)
[2021-08-14] MEDS: CHLORHEXIDINE GLUCONATE 473 ML MOUTHWASH MM SCH ×3 (04:31→16:37)
[2021-08-14] MEDS: NOREPINEPHRIN 4MG/NS 250ML 250 ML IV PRN (04:46)
[2021-08-14 05:08] LABS: HEMATOCRIT 25.1 % (42-54); MEAN CORPUSCULAR HGB CONC 29.1 g/dL (32.0-36.0); MEAN CORPUSCULAR VOLUME 103.3 fL (79-99); NUCLEATED RED BLOOD CELLS 9.4 % (0.0-0.19); PLATELET COUNT (AUTO) 210 K/uL (130-400); RED BLOOD CELL COUNT(AUTO) 2.43 MIL/uL (4.50-6.20); RED CELL DISTRIBUTION WIDTH 13.9 % (11.0-15.5); WHITE BLOOD COUNT (AUTO) 10.8 K/uL (4.8-10.8)
[2021-08-14 05:21] LABS: CREATININE 0.9 mg/dL (0.5-1.5); CRP QUANTITATIVE 5.3 mg/L (0.00-9.0)
[2021-08-14] MEDS: INSULIN HUMULIN R 100 UNIT/ML 3ML SQ SCH ×4 (05:30→23:35)
[2021-08-14 06:07] LABS: BAND NEUTROPHILS % (MANUAL) 17 % (0-2); EOSINOPHILS % (MANUAL) 3 % (1-6); LYMPHOCYTES % (MANUAL) 7 % (22-44); MAN.DIFF COMMENT-IMPRESSION MANUAL DIFFERENTIAL; METAMYELOCYTES % 3 % (0-0); MONOCYTES % (MANUAL) 2 % (2-9); PLATELET MORPHOLOGY COMMENT ADEQUATE; SEGMENTED NEUTROPHILS % 68 % (40-70)
[2021-08-14] MEDS: SODIUM BICARB 50MEQ 50ML VIAL IV SCH (07:10)
[2021-08-14] MEDS: INSULIN GLARGINE 100 UNITS/ML 10 ML VIAL SQ SCH ×2 (07:11→21:16)
[2021-08-14 08:40] LABS: BASOPHILS % (AUTO) 0.4 % (0.0-5.0); EOSINOPHILS % (AUTO) 1.1 % (0.0-8.0); HEMATOCRIT 24.3 % (42-54); LYMPHOCYTES % (AUTO) 8.8 % (21.0-51.0); MEAN CORPUSCULAR HEMOGLOBIN 30.1 pg (27.0-33.0); MEAN CORPUSCULAR HGB CONC 29.2 g/dL (32.0-36.0); MONOCYTES % (AUTO) 7.5 % (3.0-13.0); NEUTROPHILS % (AUTO) 71.8 % (40.0-77.0); NUCLEATED RED BLOOD CELLS 8.5 % (0.0-0.19); PLATELET COUNT (AUTO) 180 K/uL (130-400); RED BLOOD CELL COUNT(AUTO) 2.36 MIL/uL (4.50-6.20); RED CELL DISTRIBUTION WIDTH 13.9 % (11.0-15.5)
[2021-08-14] MEDS: FUROSEMIDE 40MG VIAL IV SCH (09:29)
[2021-08-14] MEDS: METHADONE HCL 10 MG TABLET PO SCH ×3 (09:29→23:32)
[2021-08-14] MEDS: PANTOPRAZOLE 40MG INJ 80 MG in 0.9%NACL 100ML 100 ML IVP SCH ×2 (09:29→18:16)
[2021-08-14 10:21] LABS: OCCULT BLOOD,GASTRIC FLUID POSITIVE (NEGATIVE)
[2021-08-14] MEDS: OCTREOTIDE ACETATE 1,250 MCG in 0.9% NACL 250ML 250 ML IV SCH (12:07)
[2021-08-14] MEDS: VANCOMYCIN 1.5GM/NS 250ML IV SCH ×2 (12:07)
[2021-08-14 14:07] LABS: BASOPHILS % (AUTO) 0.2 % (0.0-5.0); HEMATOCRIT 23.7 % (42-54); LYMPHOCYTES % (AUTO) 11.9 % (21.0-51.0); MEAN CORPUSCULAR HEMOGLOBIN 30.9 pg (27.0-33.0); NEUTROPHILS % (AUTO) 69.3 % (40.0-77.0); NUCLEATED RED BLOOD CELLS 10.6 % (0.0-0.19); PLATELET COUNT (AUTO) 171 K/uL (130-400); RED CELL DISTRIBUTION WIDTH 13.9 % (11.0-15.5)
[2021-08-14] MEDS: FENTANYL 2500MCG+NS 250ML 250 ML IV SCH ×2 (14:45→22:08)
[2021-08-14] MEDS: DEXMEDETOMIDINE HCL 400 MCG in 0.9%NACL 100ML 100 ML IV SCH (19:53)
[2021-08-14 20:50] LABS: BASOPHILS % (AUTO) 0.4 % (0.0-5.0); EOSINOPHILS % (AUTO) 1.9 % (0.0-8.0); HEMATOCRIT 24.4 % (42-54); LYMPHOCYTES % (AUTO) 9.8 % (21.0-51.0); MEAN CORPUSCULAR HEMOGLOBIN 30.6 pg (27.0-33.0); MEAN CORPUSCULAR HGB CONC 29.1 g/dL (32.0-36.0); MEAN CORPUSCULAR VOLUME 105.2 fL (79-99); MONOCYTES % (AUTO) 6.4 % (3.0-13.0); NEUTROPHILS % (AUTO) 69.9 % (40.0-77.0); NUCLEATED RED BLOOD CELLS 12.3 % (0.0-0.19); PLATELET COUNT (AUTO) 170 K/uL (130-400); RED BLOOD CELL COUNT(AUTO) 2.32 MIL/uL (4.50-6.20); WHITE BLOOD COUNT (AUTO) 8.3 K/uL (4.8-10.8)
[2021-08-14] MEDS: ATORVASTATIN 40 MG TABLET NG SCH (21:15)
[2021-08-14] MEDS ORDERED: PANTOPRAZOLE 40 MG/VIAL IVP ONE (22:30)
[2021-08-15] VITALS (75 sets, daily range): BP systolic 98–183; BP diastolic 48–99
[2021-08-15] MEDS ORDERED: DEXMEDETOMIDINE 400MCG/NS100ML IV ONE ×6 (00:21→08:48)
[2021-08-15] MEDS: MIDAZOLAM 100MG-0.9% NS 100ML 100ML BAG IV SCH ×2 (00:31→14:23)
[2021-08-15 00:34] LABS: HEMATOCRIT 25.5 % (42-54)
[2021-08-15] MEDS: DIAZEPAM 5 MG TABLET PO SCH ×5 (00:39→23:03)
[2021-08-15] MEDS: CHLORHEXIDINE GLUCONATE 473 ML MOUTHWASH MM SCH ×5 (00:40→23:04)
[2021-08-15] MEDS: CISATRACURIUM BESYLATE 100 MG in 0.9%NACL 100ML 100 ML IV SCH ×5 (02:00→22:40)
[2021-08-15] MEDS: VANCOMYCIN 1.5GM/NS 250ML IV SCH ×4 (02:02→12:24)
[2021-08-15] MEDS: METHADONE HCL 10 MG TABLET PO SCH (03:30)
[2021-08-15 03:44] LABS: ABG HCO3 38.3 mmol/L (21.0-28.0); ABG PCO2 61 mmHg (35-48)
[2021-08-15] MEDS: PANTOPRAZOLE 40MG INJ 80 MG in 0.9%NACL 100ML 100 ML IVP SCH ×2 (03:51→11:18)
[2021-08-15] MEDS: ZOSYN 3.375GM+NS 50ML 50 ML IV SCH ×3 (05:00→20:45)
[2021-08-15] MEDS: SOLU-MEDROL 40MG VIAL IVP SCH ×2 (05:19→18:31)
[2021-08-15] MEDS: FENTANYL 2500MCG+NS 250ML 250 ML IV SCH ×3 (05:51→20:42)
[2021-08-15] MEDS: INSULIN HUMULIN R 100 UNIT/ML 3ML SQ SCH ×4 (06:00→18:36)
[2021-08-15 06:50] LABS: HEMATOCRIT 23.6 % (42-54); MEAN CORPUSCULAR HEMOGLOBIN 30.5 pg (27.0-33.0); MEAN CORPUSCULAR HGB CONC 30.1 g/dL (32.0-36.0); MEAN CORPUSCULAR VOLUME 101.3 fL (79-99); NUCLEATED RED BLOOD CELLS 14.1 % (0.0-0.19); PLATELET COUNT (AUTO) 191 K/uL (130-400); RED BLOOD CELL COUNT(AUTO) 2.33 MIL/uL (4.50-6.20); RED CELL DISTRIBUTION WIDTH 14.3 % (11.0-15.5); WHITE BLOOD COUNT (AUTO) 7.9 K/uL (4.8-10.8)
[2021-08-15 07:09] LABS: ALBUMIN 1.9 g/dL (3.5-5.0); BILIRUBIN,TOTAL 0.6 mg/dL (0.2-1.0); CREATININE 0.9 mg/dL (0.5-1.5); POTASSIUM 4.6 mmol/L (3.5-5.1); TOTAL PROTEIN, SERUM 4.6 g/dL (6.0-8.3)
[2021-08-15] MEDS: INSULIN GLARGINE 100 UNITS/ML 10 ML VIAL SQ SCH ×2 (07:17→22:16)
[2021-08-15] MEDS: SODIUM BICARB 50MEQ 50ML VIAL IV SCH (07:19)
[2021-08-15 07:58] LABS: BAND NEUTROPHILS % (MANUAL) 12 % (0-2); EOSINOPHILS % (MANUAL) 4 % (1-6); LYMPHOCYTES % (MANUAL) 10 % (22-44); METAMYELOCYTES % 2 % (0-0); SEGMENTED NEUTROPHILS % 72 % (40-70)
[2021-08-15 07:59] LABS: PLATELET MORPHOLOGY COMMENT ADEQUATE
[2021-08-15] MEDS: FUROSEMIDE 40MG VIAL IV SCH (09:00)
[2021-08-15] MEDS: OCTREOTIDE ACETATE 1,250 MCG in 0.9% NACL 250ML 250 ML IV SCH (11:17)
[2021-08-15 11:27] LABS: MAGNESIUM 2.5 mg/dL (1.80-2.40); PHOSPHORUS 2.8 mg/dL (2.5-4.9)
[2021-08-15] MEDS: SUCRALFATE 1 GM TABLET PO SCH ×3 (12:22→23:03)
[2021-08-15] MEDS: DEXMEDETOMIDINE 400MCG/NS100ML IV SCH ×2 (14:50→23:26)
[2021-08-15 16:53] LABS: HEMATOCRIT 25.6 % (42-54)
[2021-08-15] MEDS: ATORVASTATIN 40 MG TABLET NG SCH (20:45)
[2021-08-16] VITALS (54 sets, daily range): BP systolic 91–127; BP diastolic 50–74
[2021-08-16] MEDS: MIDAZOLAM 100MG-0.9% NS 100ML 100ML BAG IV SCH ×3 (00:48→19:15)
[2021-08-16] MEDS: PANTOPRAZOLE 40MG INJ 80 MG in 0.9%NACL 100ML 100 ML IVP SCH (00:48)
[2021-08-16] MEDS: DEXMEDETOMIDINE 400MCG/NS100ML IV SCH ×6 (00:49→22:44)
[2021-08-16] MEDS: CISATRACURIUM BESYLATE 100 MG in 0.9%NACL 100ML 100 ML IV SCH ×4 (00:51→22:47)
[2021-08-16] MEDS: VANCOMYCIN 1.5GM/NS 250ML IV SCH ×4 (01:00→13:39)
[2021-08-16 03:54] LABS: ABG BASE EXCESS 5.5 mmol/L (-2.0-3.0); ABG HCO3 35.3 mmol/L (21.0-28.0); ABG OXYGEN SATURATION 79.6 % (95.0-99.0); ABG PCO2 77 mmHg (35-48)
[2021-08-16] MEDS: ZOSYN 3.375GM+NS 50ML 50 ML IV SCH ×3 (04:37→19:56)
[2021-08-16] MEDS: SOLU-MEDROL 40MG VIAL IVP SCH ×2 (04:37→18:02)
[2021-08-16] MEDS: FENTANYL 2500MCG+NS 250ML 250 ML IV SCH ×2 (04:37→12:28)
[2021-08-16] MEDS: SUCRALFATE 1 GM TABLET PO SCH ×4 (05:33→22:45)
[2021-08-16] MEDS: CHLORHEXIDINE GLUCONATE 473 ML MOUTHWASH MM SCH ×4 (05:34→23:45)
[2021-08-16] MEDS: DIAZEPAM 5 MG TABLET PO SCH ×4 (05:34→23:45)
[2021-08-16] MEDS: INSULIN HUMULIN R 100 UNIT/ML 3ML SQ SCH ×5 (05:52→23:39)
[2021-08-16 06:51] LABS: HEMATOCRIT 25.6 % (42-54); MEAN CORPUSCULAR HEMOGLOBIN 30.8 pg (27.0-33.0); MEAN CORPUSCULAR HGB CONC 28.1 g/dL (32.0-36.0); MEAN CORPUSCULAR VOLUME 109.4 fL (79-99); NUCLEATED RED BLOOD CELLS 9.3 % (0.0-0.19); PLATELET COUNT (AUTO) 181 K/uL (130-400); RED BLOOD CELL COUNT(AUTO) 2.34 MIL/uL (4.50-6.20); RED CELL DISTRIBUTION WIDTH 15.1 % (11.0-15.5); WHITE BLOOD COUNT (AUTO) 8.9 K/uL (4.8-10.8)
[2021-08-16 07:04] LABS: ALBUMIN 1.9 g/dL (3.5-5.0); BILIRUBIN,TOTAL 0.7 mg/dL (0.2-1.0); POTASSIUM 4.8 mmol/L (3.5-5.1); TOTAL PROTEIN, SERUM 4.8 g/dL (6.0-8.3)
[2021-08-16] MEDS: SODIUM BICARB 50MEQ 50ML VIAL IV SCH (07:30)
[2021-08-16 08:33] LABS: BAND NEUTROPHILS % (MANUAL) 10 % (0-2); EOSINOPHILS % (MANUAL) 4 % (1-6); LYMPHOCYTES % (MANUAL) 8 % (22-44); METAMYELOCYTES % 2 % (0-0); SEGMENTED NEUTROPHILS % 76 % (40-70)
[2021-08-16 08:34] LABS: PLATELET MORPHOLOGY COMMENT ADEQUATE
[2021-08-16] MEDS: FUROSEMIDE 40MG VIAL IV SCH (08:42)
[2021-08-16] MEDS: FLUCONAZOLE 400 MG/NS 200 ML 200 ML IV SCH (08:42)
[2021-08-16] MEDS: INSULIN GLARGINE 100 UNITS/ML 10 ML VIAL SQ SCH ×2 (08:48→20:08)
[2021-08-16 10:14] LABS: ABG BASE EXCESS 12.9 mmol/L (-2.0-3.0); ABG HCO3 42.2 mmol/L (21.0-28.0); ABG OXYGEN SATURATION 94.9 % (95.0-99.0); ABG PCO2 98 mmHg (35-48)
[2021-08-16] MEDS ORDERED: FENTANYL 2500MCG+NS 250ML 250 ML IV ONE (18:48)
[2021-08-16] MEDS: PANTOPRAZOLE 40 MG/VIAL IVP SCH (19:56)
[2021-08-16] MEDS: ATORVASTATIN 40 MG TABLET NG SCH (19:56)
[2021-08-17] VITALS (32 sets, daily range): BP systolic 92–176; BP diastolic 51–84
[2021-08-17] MEDS: VANCOMYCIN 1.5GM/NS 250ML IV SCH ×4 (01:25→12:52)
[2021-08-17] MEDS: CISATRACURIUM BESYLATE 100 MG in 0.9%NACL 100ML 100 ML IV SCH ×5 (01:30→22:18)
[2021-08-17] MEDS: DEXMEDETOMIDINE 400MCG/NS100ML IV SCH ×5 (02:40→23:35)
[2021-08-17 04:07] LABS: ABG BASE EXCESS 13.3 mmol/L (-2.0-3.0); ABG HCO3 42.2 mmol/L (21.0-28.0); ABG PCO2 73 mmHg (35-48)
[2021-08-17] MEDS: MIDAZOLAM 100MG-0.9% NS 100ML 100ML BAG IV SCH ×2 (04:43→15:13)
[2021-08-17] MEDS: FENTANYL 2500MCG+NS 250ML 250 ML IV SCH ×2 (04:44→15:15)
[2021-08-17] MEDS: SOLU-MEDROL 40MG VIAL IVP SCH ×2 (05:04→17:57)
[2021-08-17] MEDS: ZOSYN 3.375GM+NS 50ML 50 ML IV SCH ×3 (05:04→20:18)
[2021-08-17] MEDS: SUCRALFATE 1 GM TABLET PO SCH ×3 (05:04→17:57)
[2021-08-17] MEDS: CHLORHEXIDINE GLUCONATE 473 ML MOUTHWASH MM SCH ×3 (05:04→17:58)
[2021-08-17] MEDS: INSULIN HUMULIN R 100 UNIT/ML 3ML SQ SCH ×2 (05:59→12:00)
[2021-08-17] MEDS: DIAZEPAM 5 MG TABLET PO SCH ×4 (06:10→23:34)
[2021-08-17 06:35] LABS: MEAN CORPUSCULAR HEMOGLOBIN 30.7 pg (27.0-33.0); MEAN CORPUSCULAR HGB CONC 28.6 g/dL (32.0-36.0); MEAN CORPUSCULAR VOLUME 107.3 fL (79-99); NUCLEATED RED BLOOD CELLS 11.4 % (0.0-0.19); RED BLOOD CELL COUNT(AUTO) 2.05 MIL/uL (4.50-6.20); RED CELL DISTRIBUTION WIDTH 15.8 % (11.0-15.5); WHITE BLOOD COUNT (AUTO) 6.3 K/uL (4.8-10.8)
[2021-08-17 07:13] LABS: ALBUMIN 1.7 g/dL (3.5-5.0); BILIRUBIN,TOTAL 0.5 mg/dL (0.2-1.0); CREATININE 0.7 mg/dL (0.5-1.5); CRP QUANTITATIVE 12.3 mg/L (0.00-9.0); POTASSIUM 4.1 mmol/L (3.5-5.1); TOTAL PROTEIN, SERUM 4.4 g/dL (6.0-8.3)
[2021-08-17 07:13] LABS: ABG BASE EXCESS 13.4 mmol/L (-2.0-3.0); ABG HCO3 40.4 mmol/L (21.0-28.0); ABG OXYGEN SATURATION 94.5 % (95.0-99.0); ABG PCO2 72 mmHg (35-48)
[2021-08-17 07:27] LABS: HEMATOCRIT 23.8 % (42-54)
[2021-08-17] MEDS: SODIUM BICARB 50MEQ 50ML VIAL IV SCH (07:30)
[2021-08-17] MEDS: FLUCONAZOLE 400 MG/NS 200 ML 200 ML IV SCH (09:19)
[2021-08-17] MEDS: PANTOPRAZOLE 40 MG/VIAL IVP SCH ×2 (09:19→20:18)
[2021-08-17] MEDS: FUROSEMIDE 40MG VIAL IV SCH ×2 (09:19→20:18)
[2021-08-17] MEDS: INSULIN GLARGINE 100 UNITS/ML 10 ML VIAL SQ SCH ×2 (09:20→20:19)
[2021-08-17] MEDS: ACETYLCYSTEINE 10% 100MG/ML 4ML VIAL IH SCH (18:00)
[2021-08-17] MEDS: ATORVASTATIN 40 MG TABLET NG SCH (20:18)
[2021-08-18] VITALS (30 sets, daily range): BP systolic 94–163; BP diastolic 51–86
[2021-08-18] MEDS: CHLORHEXIDINE GLUCONATE 473 ML MOUTHWASH MM SCH ×4 (00:02→18:37)
[2021-08-18] MEDS: SUCRALFATE 1 GM TABLET PO SCH ×5 (00:02→23:58)
[2021-08-18] MEDS: MIDAZOLAM 100MG-0.9% NS 100ML 100ML BAG IV SCH ×2 (00:46→16:27)
[2021-08-18] MEDS: VANCOMYCIN 1.5GM/NS 250ML IV SCH ×4 (00:46→12:24)
[2021-08-18] MEDS: CISATRACURIUM BESYLATE 100 MG in 0.9%NACL 100ML 100 ML IV SCH ×7 (01:00→23:57)
[2021-08-18] MEDS: DEXMEDETOMIDINE 400MCG/NS100ML IV SCH ×7 (02:11→23:58)
[2021-08-18 03:00] LABS: ABG BASE EXCESS 14.9 mmol/L (-2.0-3.0); ABG HCO3 43.3 mmol/L (21.0-28.0); ABG OXYGEN SATURATION 90.7 % (95.0-99.0); ABG PCO2 84 mmHg (35-48)
[2021-08-18 04:40] LABS: HEMATOCRIT 28.2 % (42-54); MEAN CORPUSCULAR HEMOGLOBIN 30.7 pg (27.0-33.0); MEAN CORPUSCULAR HGB CONC 29.4 g/dL (32.0-36.0); MEAN CORPUSCULAR VOLUME 104.4 fL (79-99); NUCLEATED RED BLOOD CELLS 11.3 % (0.0-0.19); PLATELET COUNT (AUTO) 157 K/uL (130-400); RED CELL DISTRIBUTION WIDTH 17.2 % (11.0-15.5)
[2021-08-18] MEDS: ZOSYN 3.375GM+NS 50ML 50 ML IV SCH ×3 (04:49→19:49)
[2021-08-18] MEDS: SOLU-MEDROL 40MG VIAL IVP SCH ×2 (04:49→18:48)
[2021-08-18] MEDS: FENTANYL 2500MCG+NS 250ML 250 ML IV SCH ×2 (04:49→16:31)
[2021-08-18 05:02] LABS: ALBUMIN 1.8 g/dL (3.5-5.0); BILIRUBIN,TOTAL 0.7 mg/dL (0.2-1.0); CREATININE 0.8 mg/dL (0.5-1.5); TOTAL PROTEIN, SERUM 4.8 g/dL (6.0-8.3)
[2021-08-18] MEDS: DIAZEPAM 5 MG TABLET PO SCH ×4 (05:04→23:56)
[2021-08-18] MEDS: INSULIN HUMULIN R 100 UNIT/ML 3ML SQ SCH ×6 (05:11→23:59)
[2021-08-18 05:45] LABS: BAND NEUTROPHILS % (MANUAL) 16 % (0-2); EOSINOPHILS % (MANUAL) 3 % (1-6); LYMPHOCYTES % (MANUAL) 3 % (22-44); MONOCYTES % (MANUAL) 5 % (2-9); SEGMENTED NEUTROPHILS % 73 % (40-70)
[2021-08-18 05:49] LABS: MAN.DIFF COMMENT-IMPRESSION MANUAL DIFFERENTIAL; PLATELET MORPHOLOGY COMMENT ADEQUATE
[2021-08-18] MEDS: ACETYLCYSTEINE 10% 100MG/ML 4ML VIAL IH SCH ×3 (06:00→11:42)
[2021-08-18] MEDS: SODIUM BICARB 50MEQ 50ML VIAL IV SCH (07:30)
[2021-08-18] MEDS: INSULIN GLARGINE 100 UNITS/ML 10 ML VIAL SQ SCH ×2 (07:30→19:49)
[2021-08-18] MEDS: PANTOPRAZOLE 40 MG/VIAL IVP SCH ×2 (10:27→19:47)
[2021-08-18] MEDS: FUROSEMIDE 40MG VIAL IV SCH (10:27)
[2021-08-18] MEDS: FLUCONAZOLE 400 MG/NS 200 ML 200 ML IV SCH (10:30)
[2021-08-18] MEDS: ALBUTEROL 0.042% 1.25MG/3ML IH SCH (11:42)
[2021-08-18] MEDS: ATORVASTATIN 40 MG TABLET NG SCH (19:47)
[2021-08-19] VITALS (28 sets, daily range): BP systolic 75–158; BP diastolic 38–77
[2021-08-19] MEDS: CISATRACURIUM BESYLATE 100 MG in 0.9%NACL 100ML 100 ML IV SCH ×11 (01:38→23:06)
[2021-08-19] MEDS: VANCOMYCIN 1.5GM/NS 250ML IV SCH ×4 (01:41→12:31)
[2021-08-19] MEDS: DEXMEDETOMIDINE 400MCG/NS100ML IV SCH ×9 (02:37→23:05)
[2021-08-19] MEDS: MIDAZOLAM 100MG-0.9% NS 100ML 100ML BAG IV SCH ×3 (04:01→23:05)
[2021-08-19] MEDS: DIAZEPAM 5 MG TABLET PO SCH ×3 (05:11→17:43)
[2021-08-19] MEDS: ZOSYN 3.375GM+NS 50ML 50 ML IV SCH ×3 (05:12→20:28)
[2021-08-19] MEDS: SUCRALFATE 1 GM TABLET PO SCH ×4 (05:12→22:20)
[2021-08-19] MEDS: SOLU-MEDROL 40MG VIAL IVP SCH ×2 (05:12→17:43)
[2021-08-19] MEDS: CHLORHEXIDINE GLUCONATE 473 ML MOUTHWASH MM SCH ×4 (05:13→23:19)
[2021-08-19] MEDS: INSULIN HUMULIN R 100 UNIT/ML 3ML SQ SCH ×3 (06:21→23:20)
[2021-08-19] MEDS: ACETYLCYSTEINE 10% 100MG/ML 4ML VIAL IH SCH ×3 (06:28→19:07)
[2021-08-19] MEDS: ALBUTEROL 0.042% 1.25MG/3ML IH SCH ×3 (06:28→19:07)
[2021-08-19 08:09] LABS: HEMATOCRIT 31.6 % (42-54); MEAN CORPUSCULAR HEMOGLOBIN 31.1 pg (27.0-33.0); MEAN CORPUSCULAR HGB CONC 29.1 g/dL (32.0-36.0); MEAN CORPUSCULAR VOLUME 106.8 fL (79-99); NUCLEATED RED BLOOD CELLS 5.3 % (0.0-0.19); PLATELET COUNT (AUTO) 142 K/uL (130-400); RED BLOOD CELL COUNT(AUTO) 2.96 MIL/uL (4.50-6.20); WHITE BLOOD COUNT (AUTO) 7.1 K/uL (4.8-10.8)
[2021-08-19 08:18] LABS: CREATININE 0.6 mg/dL (0.5-1.5)
[2021-08-19] MEDS: FLUCONAZOLE 400 MG/NS 200 ML 200 ML IV SCH (08:29)
[2021-08-19] MEDS: FUROSEMIDE 40MG VIAL IV SCH (08:29)
[2021-08-19] MEDS: SODIUM BICARB 50MEQ 50ML VIAL IV SCH (08:29)
[2021-08-19] MEDS: PANTOPRAZOLE 40 MG/VIAL IVP SCH ×2 (08:30→20:28)
[2021-08-19] MEDS: INSULIN GLARGINE 100 UNITS/ML 10 ML VIAL SQ SCH ×2 (08:32→20:29)
[2021-08-19 09:45] LABS: LYMPHOCYTES % (MANUAL) 4 % (22-44); MAN.DIFF COMMENT-IMPRESSION MANUAL DIFFERENTIAL; MONOCYTES % (MANUAL) 4 % (2-9); PLATELET MORPHOLOGY COMMENT ADEQUATE; SEGMENTED NEUTROPHILS % 92 % (40-70)
[2021-08-19] MEDS: FENTANYL 2500MCG+NS 250ML 250 ML IV SCH ×2 (11:50→20:30)
[2021-08-19] MEDS: ATORVASTATIN 40 MG TABLET NG SCH (20:28)
[2021-08-19] MEDS: NOREPINEPHRIN 4MG/NS 250ML 250 ML IV PRN (22:19)
[2021-08-20] VITALS (24 sets, daily range): BP systolic 93–133; BP diastolic 54–81
[2021-08-20] MEDS: ACETYLCYSTEINE 10% 100MG/ML 4ML VIAL IH SCH ×4 (00:01→18:19)
[2021-08-20] MEDS: ALBUTEROL 0.042% 1.25MG/3ML IH SCH ×4 (00:01→18:19)
[2021-08-20] MEDS: DIAZEPAM 5 MG TABLET PO SCH ×4 (00:05→18:20)
[2021-08-20] MEDS: VANCOMYCIN 1.5GM/NS 250ML IV SCH ×4 (00:06→13:00)
[2021-08-20] MEDS: CISATRACURIUM BESYLATE 100 MG in 0.9%NACL 100ML 100 ML IV SCH ×11 (00:26→23:17)
[2021-08-20] MEDS: DEXMEDETOMIDINE 400MCG/NS100ML IV SCH ×8 (01:56→20:36)
[2021-08-20 04:29] LABS: ABG BASE EXCESS 16.6 mmol/L (-2.0-3.0); ABG HCO3 46.3 mmol/L (21.0-28.0); ABG OXYGEN SATURATION 96.3 % (95.0-99.0); ABG PCO2 104 mmHg (35-48)
[2021-08-20 04:31] LABS: HEMATOCRIT 27.3 % (42-54); MEAN CORPUSCULAR HEMOGLOBIN 30.1 pg (27.0-33.0); MEAN CORPUSCULAR HGB CONC 27.5 g/dL (32.0-36.0); MEAN CORPUSCULAR VOLUME 109.6 fL (79-99); NUCLEATED RED BLOOD CELLS 3.3 % (0.0-0.19); RED BLOOD CELL COUNT(AUTO) 2.49 MIL/uL (4.50-6.20); RED CELL DISTRIBUTION WIDTH 17.7 % (11.0-15.5); WHITE BLOOD COUNT (AUTO) 5.8 K/uL (4.8-10.8)
[2021-08-20 04:35] LABS: CREATININE 0.6 mg/dL (0.5-1.5); POTASSIUM 3.8 mmol/L (3.5-5.1)
[2021-08-20] MEDS: FENTANYL 2500MCG+NS 250ML 250 ML IV SCH ×3 (04:41→20:37)
[2021-08-20] MEDS: ZOSYN 3.375GM+NS 50ML 50 ML IV SCH ×3 (05:33→20:33)
[2021-08-20] MEDS: SUCRALFATE 1 GM TABLET PO SCH ×4 (05:34→20:34)
[2021-08-20] MEDS: SOLU-MEDROL 40MG VIAL IVP SCH ×2 (05:34→18:19)
[2021-08-20] MEDS: CHLORHEXIDINE GLUCONATE 473 ML MOUTHWASH MM SCH ×4 (05:35→23:17)
[2021-08-20] MEDS: INSULIN HUMULIN R 100 UNIT/ML 3ML SQ SCH ×4 (06:29→23:21)
[2021-08-20] MEDS: SODIUM BICARB 50MEQ 50ML VIAL IV SCH (07:30)
[2021-08-20] MEDS: FLUCONAZOLE 400 MG/NS 200 ML 200 ML IV SCH (09:36)
[2021-08-20] MEDS: FUROSEMIDE 40MG VIAL IV SCH (09:36)
[2021-08-20] MEDS: MIDAZOLAM 100MG-0.9% NS 100ML 100ML BAG IV SCH ×2 (09:37→20:36)
[2021-08-20] MEDS: INSULIN GLARGINE 100 UNITS/ML 10 ML VIAL SQ SCH ×2 (09:37→20:35)
[2021-08-20] MEDS: PANTOPRAZOLE 40 MG/VIAL IVP SCH ×2 (10:07→20:33)
[2021-08-20] MEDS: ATORVASTATIN 40 MG TABLET NG SCH (20:34)
[2021-08-21] VITALS (51 sets, daily range): BP systolic 95–204; BP diastolic 40–104
[2021-08-21] MEDS: DEXMEDETOMIDINE 400MCG/NS100ML IV SCH ×9 (00:37→23:05)
[2021-08-21] MEDS: CISATRACURIUM BESYLATE 100 MG in 0.9%NACL 100ML 100 ML IV SCH ×13 (02:56→22:30)
[2021-08-21 03:33] LABS: ABG BASE EXCESS 13.8 mmol/L (-2.0-3.0); ABG HCO3 44.8 mmol/L (21.0-28.0); ABG OXYGEN SATURATION 95.2 % (95.0-99.0); ABG PCO2 90 mmHg (35-48)
[2021-08-21 04:23] LABS: HEMATOCRIT 24.8 % (42-54); MEAN CORPUSCULAR HEMOGLOBIN 30.4 pg (27.0-33.0); MEAN CORPUSCULAR HGB CONC 29.4 g/dL (32.0-36.0); MEAN CORPUSCULAR VOLUME 103.3 fL (79-99); NUCLEATED RED BLOOD CELLS 2.8 % (0.0-0.19); RED BLOOD CELL COUNT(AUTO) 2.4 MIL/uL (4.50-6.20); RED CELL DISTRIBUTION WIDTH 17.7 % (11.0-15.5)
[2021-08-21 04:45] LABS: CREATININE 0.5 mg/dL (0.5-1.5); MAGNESIUM 1.9 mg/dL (1.80-2.40); POTASSIUM 3.2 mmol/L (3.5-5.1)
[2021-08-21] MEDS: CHLORHEXIDINE GLUCONATE 473 ML MOUTHWASH MM SCH ×3 (05:18→17:25)
[2021-08-21] MEDS: ZOSYN 3.375GM+NS 50ML 50 ML IV SCH ×3 (05:18→21:05)
[2021-08-21] MEDS: SUCRALFATE 1 GM TABLET PO SCH ×4 (05:18→21:05)
[2021-08-21] MEDS: SOLU-MEDROL 40MG VIAL IVP SCH ×2 (05:18→16:48)
[2021-08-21] MEDS: DIAZEPAM 5 MG TABLET PO SCH ×4 (05:43→17:30)
[2021-08-21] MEDS: MIDAZOLAM 100MG-0.9% NS 100ML 100ML BAG IV SCH ×2 (05:43→17:32)
[2021-08-21] MEDS: FENTANYL 2500MCG+NS 250ML 250 ML IV SCH ×3 (05:44→21:05)
[2021-08-21] MEDS: INSULIN HUMULIN R 100 UNIT/ML 3ML SQ SCH (05:46)
[2021-08-21] MEDS: ACETYLCYSTEINE 10% 100MG/ML 4ML VIAL IH SCH ×3 (06:00→12:00)
[2021-08-21] MEDS: ALBUTEROL 0.042% 1.25MG/3ML IH SCH ×3 (06:00→12:00)
[2021-08-21] MEDS: SODIUM BICARB 50MEQ 50ML VIAL IV SCH (07:14)
[2021-08-21] MEDS: POTASSIUM CHLORIDE 10% ELIXIR 20 MEQ/15 ML UDCUP PO PRN ×3 (07:28→11:15)
[2021-08-21] MEDS: PANTOPRAZOLE 40 MG/VIAL IVP SCH ×2 (08:08→21:05)
[2021-08-21] MEDS: FUROSEMIDE 40MG VIAL IV SCH (08:08)
[2021-08-21] MEDS: FLUCONAZOLE 400 MG/NS 200 ML 200 ML IV SCH (08:08)
[2021-08-21] MEDS: INSULIN GLARGINE 100 UNITS/ML 10 ML VIAL SQ SCH ×2 (08:11→21:06)
[2021-08-21] MEDS: VANCOMYCIN 1.5GM/NS 250ML IV SCH ×2 (13:23)
[2021-08-21] MEDS ORDERED: VANCOMYCIN 1.5GM/NS 250ML IV SCH ×2 (13:30)
[2021-08-21] MEDS: ATORVASTATIN 40 MG TABLET NG SCH (21:05)
[2021-08-21] MEDS: 0.9% NACL 250ML 250 ML IV SCH (21:09)
[2021-08-21] MEDS: VANCOMYCIN KIT 1 GM/250 ML IV.KIT IV SCH (21:09)
[2021-08-22] VITALS (25 sets, daily range): BP systolic 89–176; BP diastolic 39–89
[2021-08-22] MEDS: CISATRACURIUM BESYLATE 100 MG in 0.9%NACL 100ML 100 ML IV SCH ×6 (00:05→06:40)
[2021-08-22] MEDS: CHLORHEXIDINE GLUCONATE 473 ML MOUTHWASH MM SCH ×4 (00:40→17:14)
[2021-08-22] MEDS ORDERED: FENTANYL 2500MCG+NS 250ML 250 ML IV ONE ×2 (01:42→11:26)
[2021-08-22] MEDS: DEXMEDETOMIDINE 400MCG/NS100ML IV SCH ×5 (01:52→20:07)
[2021-08-22] MEDS: MIDAZOLAM 100MG-0.9% NS 100ML 100ML BAG IV SCH ×3 (03:18→18:01)
[2021-08-22] MEDS: SUCRALFATE 1 GM TABLET PO SCH ×4 (05:18→21:11)
[2021-08-22] MEDS: SOLU-MEDROL 40MG VIAL IVP SCH ×2 (05:18→17:14)
[2021-08-22] MEDS: ZOSYN 3.375GM+NS 50ML 50 ML IV SCH ×3 (05:18→21:11)
[2021-08-22] MEDS: VANCOMYCIN KIT 1 GM/250 ML IV.KIT IV SCH ×4 (05:19→22:40)
[2021-08-22] MEDS: 0.9% NACL 250ML 250 ML IV SCH ×3 (05:20→22:36)
[2021-08-22] MEDS: DIAZEPAM 5 MG TABLET PO SCH ×4 (05:21→17:14)
[2021-08-22 05:36] LABS: HEMATOCRIT 26.4 % (42-54); MEAN CORPUSCULAR HGB CONC 28.8 g/dL (32.0-36.0); MEAN CORPUSCULAR VOLUME 107.8 fL (79-99); RED BLOOD CELL COUNT(AUTO) 2.45 MIL/uL (4.50-6.20); RED CELL DISTRIBUTION WIDTH 19.3 % (11.0-15.5); WHITE BLOOD COUNT (AUTO) 4.1 K/uL (4.8-10.8)
[2021-08-22 05:58] LABS: ALBUMIN 1.6 g/dL (3.5-5.0); BILIRUBIN,TOTAL 0.6 mg/dL (0.2-1.0); CREATININE 0.5 mg/dL (0.5-1.5); MAGNESIUM 1.9 mg/dL (1.80-2.40); PHOSPHORUS 2.5 mg/dL (2.5-4.9); POTASSIUM 3.9 mmol/L (3.5-5.1); TOTAL PROTEIN, SERUM 4.4 g/dL (6.0-8.3)
[2021-08-22] MEDS: ACETYLCYSTEINE 10% 100MG/ML 4ML VIAL IH SCH (06:30)
[2021-08-22] MEDS: ALBUTEROL 0.042% 1.25MG/3ML IH SCH ×3 (06:30→18:00)
[2021-08-22] MEDS: ERGOCALCIFEROL (VITAMIN D2) 50,000 UNIT CAPSULE PO SCH (09:00)
[2021-08-22] MEDS: CISATRACURIUM BESYLATE IV SCH ×4 (09:49→20:07)
[2021-08-22] MEDS: NACL 0.9% IV SCH ×4 (09:49→20:07)
[2021-08-22] MEDS: FLUCONAZOLE 400 MG/NS 200 ML 200 ML IV SCH (09:59)
[2021-08-22] MEDS: PANTOPRAZOLE 40 MG/VIAL IVP SCH ×2 (09:59→21:11)
[2021-08-22] MEDS: THIAMINE HCL 100 MG/ML 2ML VIAL IVP SCH (09:59)
[2021-08-22] MEDS: FUROSEMIDE 40MG VIAL IV SCH ×2 (09:59→17:14)
[2021-08-22] MEDS: INSULIN GLARGINE 100 UNITS/ML 10 ML VIAL SQ SCH ×2 (10:03→21:12)
[2021-08-22] MEDS: SODIUM BICARB 50MEQ 50ML VIAL IV SCH (10:06)
[2021-08-22] MEDS ORDERED: ALBUTEROL 0.083% 2.5 MG/3 ML INH IH SCH (12:00)
[2021-08-22 13:55] LABS: ABG OXYGEN SATURATION 93.7 % (95.0-99.0); ABG PCO2 91 mmHg (35-48)
[2021-08-22] MEDS ORDERED: FENTANYL CITRATE PF 0.05 MG/ML 1,000 MCG in 0.9%NACL 100ML 100 ML IVPB SCH (18:00)
[2021-08-22] MEDS: FENTANYL 2500MCG+NS 250ML 250 ML IV SCH (18:38)
[2021-08-22] MEDS: ATORVASTATIN 40 MG TABLET NG SCH (21:11)
[2021-08-22] MEDS ORDERED: 0.9%NACL 50ML 100 ML IV ONE (21:16)
[2021-08-23] VITALS (26 sets, daily range): BP systolic 81–184; BP diastolic 39–95
[2021-08-23] MEDS: DEXMEDETOMIDINE 400MCG/NS100ML IV SCH ×7 (00:15→19:48)
[2021-08-23] MEDS: CHLORHEXIDINE GLUCONATE 473 ML MOUTHWASH MM SCH ×5 (00:16→23:35)
[2021-08-23] MEDS: NACL 0.9% IV SCH ×4 (00:55→17:08)
[2021-08-23] MEDS: CISATRACURIUM BESYLATE IV SCH ×4 (00:55→17:08)
[2021-08-23] MEDS: FUROSEMIDE 40MG VIAL IV SCH ×4 (00:56→16:50)
[2021-08-23 02:51] LABS: ABG HCO3 44.1 mmol/L (21.0-28.0); ABG OXYGEN SATURATION 94.4 % (95.0-99.0); ABG PCO2 87 mmHg (35-48)
[2021-08-23] MEDS: 0.9% NACL 250ML 250 ML IV SCH ×3 (03:08→17:02)
[2021-08-23] MEDS: FENTANYL 2500MCG+NS 250ML 250 ML IV SCH ×3 (03:10→18:37)
[2021-08-23 04:18] LABS: HEMATOCRIT 27.6 % (42-54); MEAN CORPUSCULAR HEMOGLOBIN 30.5 pg (27.0-33.0); MEAN CORPUSCULAR HGB CONC 28.6 g/dL (32.0-36.0); MEAN CORPUSCULAR VOLUME 106.6 fL (79-99); NUCLEATED RED BLOOD CELLS 2.2 % (0.0-0.19); RED BLOOD CELL COUNT(AUTO) 2.59 MIL/uL (4.50-6.20); RED CELL DISTRIBUTION WIDTH 19.7 % (11.0-15.5)
[2021-08-23 04:33] LABS: CREATININE 0.6 mg/dL (0.5-1.5); MAGNESIUM 1.7 mg/dL (1.80-2.40); PHOSPHORUS 2.9 mg/dL (2.5-4.9); POTASSIUM 3.4 mmol/L (3.5-5.1)
[2021-08-23] MEDS: SUCRALFATE 1 GM TABLET PO SCH ×4 (05:16→19:47)
[2021-08-23] MEDS: SOLU-MEDROL 40MG VIAL IVP SCH ×2 (05:16→16:58)
[2021-08-23] MEDS: ZOSYN 3.375GM+NS 50ML 50 ML IV SCH ×3 (05:16→19:53)
[2021-08-23] MEDS: VANCOMYCIN KIT 1 GM/250 ML IV.KIT IV SCH ×2 (05:16→17:01)
[2021-08-23] MEDS: DIAZEPAM 5 MG TABLET PO SCH ×5 (05:17→23:36)
[2021-08-23] MEDS: ALBUTEROL 0.042% 1.25MG/3ML IH SCH ×2 (06:00→12:00)
[2021-08-23] MEDS: SODIUM BICARB 50MEQ 50ML VIAL IV SCH (07:30)
[2021-08-23] MEDS: PANTOPRAZOLE 40 MG/VIAL IVP SCH ×2 (07:51→19:47)
[2021-08-23] MEDS: FLUCONAZOLE 400 MG/NS 200 ML 200 ML IV SCH (07:51)
[2021-08-23] MEDS: THIAMINE HCL 100 MG/ML 2ML VIAL IVP SCH (07:52)
[2021-08-23] MEDS: MIDAZOLAM 100MG-0.9% NS 100ML 100ML BAG IV SCH ×3 (07:53→21:55)
[2021-08-23] MEDS: INSULIN GLARGINE 100 UNITS/ML 10 ML VIAL SQ SCH ×2 (07:56→19:53)
[2021-08-23] MEDS: ENOXAPARIN SODIUM 40 MG/0.4 ML SYRINGE SQ SCH (07:58)
[2021-08-23] MEDS ORDERED: MAGNESIUM 2GM PREMIX 50ML 50 ML IV SCH (08:30)
[2021-08-23] MEDS: POTASSIUM CHLORIDE 20MEQ/100ML 100 ML IV PRN (09:00)
[2021-08-23] MEDS ORDERED: PHARMACY COMMUNICATION MISC SCH (15:00)
[2021-08-23] MEDS ORDERED: ALBUMIN (HUMAN) 5% 250 ML IV SCH (15:30)
[2021-08-23] MEDS: ALBUMIN (HUMAN) 5% 250 ML IV SCH ×2 (15:31→16:18)
[2021-08-23] MEDS ORDERED: MIDAZOLAM HCL 1 MG/ML 2ML VIAL IVP ONE (17:00)
[2021-08-23] MEDS ORDERED: MAGNESIUM CITRATE 296 ML SOLUTION PO ONE (18:00)
[2021-08-23] MEDS: ALBUTEROL 0.083% 2.5 MG/3 ML INH IH SCH (18:17)
[2021-08-23] MEDS: ATORVASTATIN 40 MG TABLET NG SCH (19:47)
[2021-08-23] MEDS ORDERED: 0.9%NACL 50ML 50 ML IV ONE (19:51)
[2021-08-24] VITALS (28 sets, daily range): BP systolic 87–174; BP diastolic 41–96
[2021-08-24] MEDS: NACL 0.9% IV SCH ×5 (00:26→22:25)
[2021-08-24] MEDS: CISATRACURIUM BESYLATE IV SCH ×5 (00:26→22:25)
[2021-08-24] MEDS: ALBUTEROL 0.083% 2.5 MG/3 ML INH IH SCH ×5 (00:53→23:37)
[2021-08-24] MEDS: DEXMEDETOMIDINE 400MCG/NS100ML IV SCH ×4 (00:59→17:15)
[2021-08-24] MEDS: FENTANYL 2500MCG+NS 250ML 250 ML IV SCH ×4 (01:01→23:48)
[2021-08-24] MEDS: MIDAZOLAM 100MG-0.9% NS 100ML 100ML BAG IV SCH ×5 (02:58→23:47)
[2021-08-24] MEDS: CHLORHEXIDINE GLUCONATE 473 ML MOUTHWASH MM SCH ×4 (05:02→23:34)
[2021-08-24] MEDS: DIAZEPAM 5 MG TABLET PO SCH ×4 (05:02→23:34)
[2021-08-24] MEDS: SUCRALFATE 1 GM TABLET PO SCH ×4 (05:09→19:55)
[2021-08-24] MEDS: ZOSYN 3.375GM+NS 50ML 50 ML IV SCH ×3 (05:09→19:55)
[2021-08-24] MEDS: SOLU-MEDROL 40MG VIAL IVP SCH ×2 (05:09→17:13)
[2021-08-24] MEDS: 0.9% NACL 250ML 250 ML IV SCH ×2 (05:10→17:14)
[2021-08-24] MEDS: VANCOMYCIN KIT 1 GM/250 ML IV.KIT IV SCH ×2 (05:10→17:14)
[2021-08-24 06:21] LABS: HEMATOCRIT 28.4 % (42-54); MEAN CORPUSCULAR HEMOGLOBIN 31.3 pg (27.0-33.0); MEAN CORPUSCULAR HGB CONC 28.5 g/dL (32.0-36.0); MEAN CORPUSCULAR VOLUME 109.7 fL (79-99); NUCLEATED RED BLOOD CELLS 2.4 % (0.0-0.19); RED BLOOD CELL COUNT(AUTO) 2.59 MIL/uL (4.50-6.20); RED CELL DISTRIBUTION WIDTH 20.6 % (11.0-15.5); WHITE BLOOD COUNT (AUTO) 5.5 K/uL (4.8-10.8)
[2021-08-24 06:36] LABS: CREATININE 0.5 mg/dL (0.5-1.5); PHOSPHORUS 2.5 mg/dL (2.5-4.9); POTASSIUM 3.4 mmol/L (3.5-5.1)
[2021-08-24] MEDS ORDERED: METOLAZONE 2.5 MG TABLET PO SCH (07:30)
[2021-08-24] MEDS: INSULIN GLARGINE 100 UNITS/ML 10 ML VIAL SQ SCH ×2 (08:24→19:56)
[2021-08-24] MEDS: FUROSEMIDE 40MG VIAL IV SCH (08:25)
[2021-08-24] MEDS: FLUCONAZOLE 400 MG/NS 200 ML 200 ML IV SCH (08:25)
[2021-08-24] MEDS: POTASSIUM CHLORIDE 20MEQ/100ML 100 ML IV PRN (08:25)
[2021-08-24] MEDS: THIAMINE HCL 100 MG/ML 2ML VIAL IVP SCH (08:26)
[2021-08-24] MEDS: ENOXAPARIN SODIUM 40 MG/0.4 ML SYRINGE SQ SCH (08:26)
[2021-08-24] MEDS: PANTOPRAZOLE 40 MG/VIAL IVP SCH ×2 (08:26→19:55)
[2021-08-24] MEDS: SODIUM BICARB 50MEQ 50ML VIAL IV SCH (08:27)
[2021-08-24 10:52] LABS: ABG BASE EXCESS 16.1 mmol/L (-2.0-3.0); ABG HCO3 45.5 mmol/L (21.0-28.0); ABG OXYGEN SATURATION 93.6 % (95.0-99.0); ABG PCO2 77 mmHg (35-48)
[2021-08-24 15:24] LABS: POTASSIUM 3.9 mmol/L (3.5-5.1)
[2021-08-24 15:34] LABS: CREATININE 0.5 mg/dL (0.5-1.5)
[2021-08-24 17:20] LABS: ABG BASE EXCESS 18.8 mmol/L (-2.0-3.0); ABG HCO3 46.4 mmol/L (21.0-28.0); ABG OXYGEN SATURATION 77.8 % (95.0-99.0); ABG PCO2 64 mmHg (35-48)
[2021-08-24] MEDS ORDERED: 0.9%NACL 50ML 100 ML IV ONE (19:53)
[2021-08-24] MEDS: ATORVASTATIN 40 MG TABLET NG SCH (19:55)
[2021-08-25] VITALS (25 sets, daily range): BP systolic 90–188; BP diastolic 39–92
[2021-08-25] MEDS: DEXMEDETOMIDINE 400MCG/NS100ML IV SCH ×4 (00:48→20:15)
[2021-08-25] MEDS: MIDAZOLAM 100MG-0.9% NS 100ML 100ML BAG IV SCH ×4 (03:32→23:05)
[2021-08-25] MEDS: DIAZEPAM 5 MG TABLET PO SCH ×4 (05:18→23:19)
[2021-08-25] MEDS: CHLORHEXIDINE GLUCONATE 473 ML MOUTHWASH MM SCH ×4 (05:18→23:19)
[2021-08-25 05:26] LABS: HEMATOCRIT 25.5 % (42-54); MEAN CORPUSCULAR HEMOGLOBIN 31.4 pg (27.0-33.0); MEAN CORPUSCULAR HGB CONC 30.2 g/dL (32.0-36.0); MEAN CORPUSCULAR VOLUME 104.1 fL (79-99); NUCLEATED RED BLOOD CELLS 2.6 % (0.0-0.19); RED BLOOD CELL COUNT(AUTO) 2.45 MIL/uL (4.50-6.20); RED CELL DISTRIBUTION WIDTH 20.2 % (11.0-15.5); WHITE BLOOD COUNT (AUTO) 3.8 K/uL (4.8-10.8)
[2021-08-25 05:45] LABS: CREATININE 0.5 mg/dL (0.5-1.5); POTASSIUM 3.3 mmol/L (3.5-5.1)
[2021-08-25] MEDS: SOLU-MEDROL 40MG VIAL IVP SCH ×2 (06:05→17:08)
[2021-08-25] MEDS: ZOSYN 3.375GM+NS 50ML 50 ML IV SCH ×3 (06:05→20:27)
[2021-08-25] MEDS: SUCRALFATE 1 GM TABLET PO SCH ×4 (06:05→20:27)
[2021-08-25] MEDS: CISATRACURIUM BESYLATE IV SCH ×5 (06:30→23:05)
[2021-08-25] MEDS: NACL 0.9% IV SCH ×5 (06:30→23:05)
[2021-08-25] MEDS: VANCOMYCIN KIT 1 GM/250 ML IV.KIT IV SCH ×2 (06:39→17:09)
[2021-08-25] MEDS: 0.9% NACL 250ML 250 ML IV SCH ×2 (06:39→17:09)
[2021-08-25 07:17] LABS: ABG BASE EXCESS 23.7 mmol/L (-2.0-3.0); ABG HCO3 48.9 mmol/L (21.0-28.0); ABG OXYGEN SATURATION 92.5 % (95.0-99.0); ABG PCO2 59 mmHg (35-48)
[2021-08-25] MEDS: ALBUTEROL 0.083% 2.5 MG/3 ML INH IH SCH ×3 (07:25→18:28)
[2021-08-25] MEDS: SODIUM BICARB 50MEQ 50ML VIAL IV SCH (07:28)
[2021-08-25] MEDS: FLUCONAZOLE 400 MG/NS 200 ML 200 ML IV SCH (08:03)
[2021-08-25] MEDS: INSULIN GLARGINE 100 UNITS/ML 10 ML VIAL SQ SCH ×2 (08:04→20:28)
[2021-08-25] MEDS: ENOXAPARIN SODIUM 40 MG/0.4 ML SYRINGE SQ SCH (08:05)
[2021-08-25] MEDS: PANTOPRAZOLE 40 MG/VIAL IVP SCH ×2 (08:05→20:27)
[2021-08-25] MEDS: THIAMINE HCL 100 MG/ML 2ML VIAL IVP SCH (08:05)
[2021-08-25] MEDS: FUROSEMIDE 40MG VIAL IV SCH (08:06)
[2021-08-25] MEDS: POTASSIUM CHLORIDE 20MEQ/100ML 100 ML IV PRN (08:06)
[2021-08-25] MEDS: FENTANYL 2500MCG+NS 250ML 250 ML IV SCH ×2 (08:29→17:13)
[2021-08-25] MEDS: ATORVASTATIN 40 MG TABLET NG SCH (20:27)
[2021-08-26] VITALS (28 sets, daily range): BP systolic 81–185; BP diastolic 35–94
[2021-08-26] MEDS: ALBUTEROL 0.083% 2.5 MG/3 ML INH IH SCH ×2 (01:47→06:29)
[2021-08-26] MEDS: NACL 0.9% IV SCH ×5 (01:54→22:46)
[2021-08-26] MEDS: CISATRACURIUM BESYLATE IV SCH ×5 (01:54→22:46)
[2021-08-26] MEDS: FENTANYL 2500MCG+NS 250ML 250 ML IV SCH ×3 (02:17→16:46)
[2021-08-26 04:49] LABS: HEMATOCRIT 31.1 % (42-54); MEAN CORPUSCULAR HEMOGLOBIN 31.3 pg (27.0-33.0); MEAN CORPUSCULAR HGB CONC 29.6 g/dL (32.0-36.0); MEAN CORPUSCULAR VOLUME 105.8 fL (79-99); NUCLEATED RED BLOOD CELLS 2.1 % (0.0-0.19); RED BLOOD CELL COUNT(AUTO) 2.94 MIL/uL (4.50-6.20); RED CELL DISTRIBUTION WIDTH 21.4 % (11.0-15.5); WHITE BLOOD COUNT (AUTO) 6.8 K/uL (4.8-10.8)
[2021-08-26 05:00] LABS: CREATININE 0.5 mg/dL (0.5-1.5); CRP QUANTITATIVE 37.5 mg/L (0.00-9.0); POTASSIUM 3.6 mmol/L (3.5-5.1)
[2021-08-26] MEDS: CHLORHEXIDINE GLUCONATE 473 ML MOUTHWASH MM SCH ×4 (05:23→23:14)
[2021-08-26] MEDS: DIAZEPAM 5 MG TABLET PO SCH ×4 (05:23→23:14)
[2021-08-26] MEDS: MIDAZOLAM 100MG-0.9% NS 100ML 100ML BAG IV SCH ×3 (05:38→16:46)
[2021-08-26] MEDS: SUCRALFATE 1 GM TABLET PO SCH ×4 (05:38→20:43)
[2021-08-26] MEDS: SOLU-MEDROL 40MG VIAL IVP SCH ×2 (05:38→16:44)
[2021-08-26] MEDS: ZOSYN 3.375GM+NS 50ML 50 ML IV SCH ×3 (05:38→20:42)
[2021-08-26] MEDS: VANCOMYCIN KIT 1 GM/250 ML IV.KIT IV SCH ×2 (05:39→16:44)
[2021-08-26] MEDS: 0.9% NACL 250ML 250 ML IV SCH ×2 (05:39→16:44)
[2021-08-26] MEDS: SODIUM BICARB 50MEQ 50ML VIAL IV SCH (07:30)
[2021-08-26] MEDS: FLUCONAZOLE 400 MG/NS 200 ML 200 ML IV SCH (08:15)
[2021-08-26] MEDS: PANTOPRAZOLE 40 MG/VIAL IVP SCH ×2 (08:16→20:42)
[2021-08-26] MEDS: POTASSIUM CHLORIDE 20MEQ/100ML 100 ML IV PRN (08:16)
[2021-08-26] MEDS: THIAMINE HCL 100 MG/ML 2ML VIAL IVP SCH (08:16)
[2021-08-26] MEDS: ENOXAPARIN SODIUM 40 MG/0.4 ML SYRINGE SQ SCH (08:16)
[2021-08-26] MEDS: FUROSEMIDE 40MG VIAL IV SCH (08:17)
[2021-08-26] MEDS: INSULIN GLARGINE 100 UNITS/ML 10 ML VIAL SQ SCH ×2 (08:18→20:44)
[2021-08-26] MEDS: DEXMEDETOMIDINE 400MCG/NS100ML IV SCH ×3 (09:36→22:46)
[2021-08-26] MEDS: ATORVASTATIN 40 MG TABLET NG SCH (20:42)
[2021-08-26] MEDS: BALSAM PERU/CASTOR OIL 60 GM TUBE TP SCH (20:44)
[2021-08-27] VITALS (39 sets, daily range): BP systolic 86–182; BP diastolic 39–96
[2021-08-27] MEDS: DEXMEDETOMIDINE 400MCG/NS100ML IV SCH ×4 (00:07→18:58)
[2021-08-27] MEDS: NOREPINEPHRIN 4MG/NS 250ML 250 ML IV PRN (00:27)
[2021-08-27] MEDS: MIDAZOLAM 100MG-0.9% NS 100ML 100ML BAG IV SCH ×5 (00:27→22:42)
[2021-08-27] MEDS: FENTANYL 2500MCG+NS 250ML 250 ML IV SCH ×3 (01:49→14:55)
[2021-08-27 04:03] LABS: MEAN CORPUSCULAR HEMOGLOBIN 30.9 pg (27.0-33.0); MEAN CORPUSCULAR HGB CONC 30.4 g/dL (32.0-36.0); MEAN CORPUSCULAR VOLUME 101.7 fL (79-99); NUCLEATED RED BLOOD CELLS 1.8 % (0.0-0.19); PLATELET COUNT (AUTO) 170 K/uL (130-400); RED BLOOD CELL COUNT(AUTO) 2.36 MIL/uL (4.50-6.20); WHITE BLOOD COUNT (AUTO) 5.1 K/uL (4.8-10.8)
[2021-08-27 04:20] LABS: ALBUMIN 1.7 g/dL (3.5-5.0); BILIRUBIN,TOTAL 0.6 mg/dL (0.2-1.0); CREATININE 0.5 mg/dL (0.5-1.5); POTASSIUM 3.6 mmol/L (3.5-5.1); TOTAL PROTEIN, SERUM 4.3 g/dL (6.0-8.3)
[2021-08-27 04:21] LABS: PLATELET MORPHOLOGY LARGE PLTS PRESENT
[2021-08-27] MEDS: 0.9% NACL 250ML 250 ML IV SCH ×2 (04:54→17:35)
[2021-08-27] MEDS: ZOSYN 3.375GM+NS 50ML 50 ML IV SCH (04:54)
[2021-08-27] MEDS: VANCOMYCIN KIT 1 GM/250 ML IV.KIT IV SCH ×2 (04:54→17:35)
[2021-08-27] MEDS: SUCRALFATE 1 GM TABLET PO SCH ×3 (04:54→17:35)
[2021-08-27] MEDS: SOLU-MEDROL 40MG VIAL IVP SCH ×2 (04:54→17:34)
[2021-08-27] MEDS: CHLORHEXIDINE GLUCONATE 473 ML MOUTHWASH MM SCH ×3 (04:55→17:35)
[2021-08-27] MEDS: DIAZEPAM 5 MG TABLET PO SCH ×3 (04:55→17:34)
[2021-08-27] MEDS: CISATRACURIUM BESYLATE IV SCH ×6 (06:16→22:42)
[2021-08-27] MEDS: NACL 0.9% IV SCH ×6 (06:16→22:42)
[2021-08-27 07:15] LABS: ABG HCO3 42.2 mmol/L (21.0-28.0); ABG OXYGEN SATURATION 89.4 % (95.0-99.0); ABG PCO2 56 mmHg (35-48)
[2021-08-27] MEDS: SODIUM BICARB 50MEQ 50ML VIAL IV SCH (07:30)
[2021-08-27] MEDS: THIAMINE HCL 100 MG/ML 2ML VIAL IVP SCH (08:15)
[2021-08-27] MEDS: FUROSEMIDE 40MG VIAL IV SCH (08:15)
[2021-08-27] MEDS: PANTOPRAZOLE 40 MG/VIAL IVP SCH ×2 (08:15→21:11)
[2021-08-27] MEDS: FLUCONAZOLE 400 MG/NS 200 ML 200 ML IV SCH (08:16)
[2021-08-27] MEDS: ENOXAPARIN SODIUM 40 MG/0.4 ML SYRINGE SQ SCH (08:16)
[2021-08-27] MEDS: BALSAM PERU/CASTOR OIL 60 GM TUBE TP SCH ×2 (08:17→21:13)
[2021-08-27] MEDS: INSULIN GLARGINE 100 UNITS/ML 10 ML VIAL SQ SCH ×2 (08:19→21:12)
[2021-08-27] MEDS: ATORVASTATIN 40 MG TABLET NG SCH (20:52)
[2021-08-27] MEDS ORDERED: FENTANYL 2500MCG+NS 250ML 250 ML IV ONE (22:35)
[2021-08-28] VITALS (48 sets, daily range): BP systolic 74–198; BP diastolic 31–96
[2021-08-28] MEDS: SUCRALFATE 1 GM TABLET PO SCH ×5 (00:25→20:03)
[2021-08-28] MEDS: CHLORHEXIDINE GLUCONATE 473 ML MOUTHWASH MM SCH ×5 (00:26→23:52)
[2021-08-28] MEDS: DIAZEPAM 5 MG TABLET PO SCH ×5 (00:26→23:52)
[2021-08-28 00:46] LABS: HEMATOCRIT 32.3 % (42-54)
[2021-08-28] MEDS: NACL 0.9% IV SCH ×7 (03:27→21:51)
[2021-08-28] MEDS: CISATRACURIUM BESYLATE IV SCH ×7 (03:27→21:51)
[2021-08-28] MEDS: SOLU-MEDROL 40MG VIAL IVP SCH ×2 (04:30→17:06)
[2021-08-28] MEDS: DEXMEDETOMIDINE 400MCG/NS100ML IV SCH ×5 (04:31→22:59)
[2021-08-28 05:45] LABS: BASOPHILS % (AUTO) 0.5 % (0.0-5.0); HEMATOCRIT 24.5 % (42-54); LYMPHOCYTES % (AUTO) 3.6 % (21.0-51.0); MEAN CORPUSCULAR HEMOGLOBIN 31.4 pg (27.0-33.0); MEAN CORPUSCULAR HGB CONC 30.2 g/dL (32.0-36.0); MEAN CORPUSCULAR VOLUME 103.8 fL (79-99); MONOCYTES % (AUTO) 4.6 % (3.0-13.0); NEUTROPHILS % (AUTO) 88.7 % (40.0-77.0); NUCLEATED RED BLOOD CELLS 2.9 % (0.0-0.19); PLATELET COUNT (AUTO) 163 K/uL (130-400); RED BLOOD CELL COUNT(AUTO) 2.36 MIL/uL (4.50-6.20); RED CELL DISTRIBUTION WIDTH 21.3 % (11.0-15.5); WHITE BLOOD COUNT (AUTO) 4.2 K/uL (4.8-10.8)
[2021-08-28] MEDS: MIDAZOLAM 100MG-0.9% NS 100ML 100ML BAG IV SCH ×4 (05:51→21:56)
[2021-08-28] MEDS: VANCOMYCIN KIT 1 GM/250 ML IV.KIT IV SCH ×2 (05:51→17:06)
[2021-08-28] MEDS: 0.9% NACL 250ML 250 ML IV SCH ×2 (05:52→17:06)
[2021-08-28 06:05] LABS: ALBUMIN 1.6 g/dL (3.5-5.0); BILIRUBIN,TOTAL 0.4 mg/dL (0.2-1.0); CREATININE 0.5 mg/dL (0.5-1.5); POTASSIUM 3.7 mmol/L (3.5-5.1); TOTAL PROTEIN, SERUM 4.1 g/dL (6.0-8.3)
[2021-08-28] MEDS: SODIUM BICARB 50MEQ 50ML VIAL IV SCH (07:30)
[2021-08-28] MEDS ORDERED: FENTANYL 2500MCG+NS 250ML 250 ML IV ONE ×2 (07:56→17:17)
[2021-08-28] MEDS: FLUCONAZOLE 400 MG/NS 200 ML 200 ML IV SCH (08:20)
[2021-08-28] MEDS: PANTOPRAZOLE 40 MG/VIAL IVP SCH ×2 (08:21→20:03)
[2021-08-28] MEDS: THIAMINE HCL 100 MG/ML 2ML VIAL IVP SCH (08:21)
[2021-08-28] MEDS: BALSAM PERU/CASTOR OIL 60 GM TUBE TP SCH ×2 (08:22→20:09)
[2021-08-28] MEDS: FUROSEMIDE 40MG VIAL IV SCH (08:37)
[2021-08-28] MEDS: INSULIN GLARGINE 100 UNITS/ML 10 ML VIAL SQ SCH ×2 (08:39→20:04)
[2021-08-28] MEDS: ATORVASTATIN 40 MG TABLET NG SCH (20:03)
[2021-08-29] VITALS (23 sets, daily range): BP systolic 92–199; BP diastolic 2–94
[2021-08-29] MEDS ORDERED: FENTANYL 2500MCG+NS 250ML 250 ML IV ONE (00:24)
[2021-08-29] MEDS: CISATRACURIUM BESYLATE IV SCH ×4 (00:29→20:35)
[2021-08-29] MEDS: NACL 0.9% IV SCH ×4 (00:29→20:35)
[2021-08-29] MEDS: DEXMEDETOMIDINE 400MCG/NS100ML IV SCH ×5 (04:20→23:14)
[2021-08-29] MEDS: SOLU-MEDROL 40MG VIAL IVP SCH ×2 (04:21→19:19)
[2021-08-29 04:36] LABS: HEMATOCRIT 25.4 % (42-54); MEAN CORPUSCULAR HGB CONC 30.3 g/dL (32.0-36.0); MEAN CORPUSCULAR VOLUME 102.4 fL (79-99); NUCLEATED RED BLOOD CELLS 3.3 % (0.0-0.19); RED BLOOD CELL COUNT(AUTO) 2.48 MIL/uL (4.50-6.20); RED CELL DISTRIBUTION WIDTH 21.5 % (11.0-15.5); WHITE BLOOD COUNT (AUTO) 4.5 K/uL (4.8-10.8)
[2021-08-29 04:50] LABS: CREATININE 0.5 mg/dL (0.5-1.5); CRP QUANTITATIVE 20.4 mg/L (0.00-9.0); POTASSIUM 3.5 mmol/L (3.5-5.1)
[2021-08-29] MEDS: SUCRALFATE 1 GM TABLET PO SCH ×4 (05:13→23:13)
[2021-08-29] MEDS: VANCOMYCIN KIT 1 GM/250 ML IV.KIT IV SCH ×2 (05:14→19:19)
[2021-08-29] MEDS: MIDAZOLAM 100MG-0.9% NS 100ML 100ML BAG IV SCH ×2 (05:14→12:32)
[2021-08-29] MEDS: CHLORHEXIDINE GLUCONATE 473 ML MOUTHWASH MM SCH ×3 (05:15→19:20)
[2021-08-29] MEDS: DIAZEPAM 5 MG TABLET PO SCH ×3 (05:15→19:18)
[2021-08-29] MEDS: 0.9% NACL 250ML 250 ML IV SCH ×2 (05:15→19:19)
[2021-08-29] MEDS: SODIUM BICARB 50MEQ 50ML VIAL IV SCH (08:55)
[2021-08-29] MEDS: FLUCONAZOLE 400 MG/NS 200 ML 200 ML IV SCH (08:55)
[2021-08-29] MEDS: FUROSEMIDE 40MG VIAL IV SCH (08:56)
[2021-08-29] MEDS: THIAMINE HCL 100 MG/ML 2ML VIAL IVP SCH (08:58)
[2021-08-29] MEDS: PANTOPRAZOLE 40 MG/VIAL IVP SCH ×2 (08:58→20:25)
[2021-08-29] MEDS: FENTANYL 2500MCG+NS 250ML 250 ML IV SCH ×2 (09:43→19:25)
[2021-08-29] MEDS: BALSAM PERU/CASTOR OIL 60 GM TUBE TP SCH ×2 (09:48→20:28)
[2021-08-29 10:05] LABS: ABG BASE EXCESS 12.4 mmol/L (-2.0-3.0); ABG HCO3 41.6 mmol/L (21.0-28.0); ABG OXYGEN SATURATION 95.7 % (95.0-99.0); ABG PCO2 96 mmHg (35-48)
[2021-08-29] MEDS: INSULIN GLARGINE 100 UNITS/ML 10 ML VIAL SQ SCH ×2 (12:03→20:27)
[2021-08-29] MEDS: ERGOCALCIFEROL (VITAMIN D2) 50,000 UNIT CAPSULE PO SCH (12:04)
[2021-08-29] MEDS: ATORVASTATIN 40 MG TABLET NG SCH (20:25)
[2021-08-30] VITALS (33 sets, daily range): BP systolic 101–227; BP diastolic 48–108
[2021-08-30] MEDS: DIAZEPAM 5 MG TABLET PO SCH ×5 (00:17→23:35)
[2021-08-30] MEDS: CHLORHEXIDINE GLUCONATE 473 ML MOUTHWASH MM SCH ×5 (00:22→23:35)
[2021-08-30] MEDS: CISATRACURIUM BESYLATE IV SCH ×6 (03:48→22:30)
[2021-08-30] MEDS: NACL 0.9% IV SCH ×6 (03:48→22:30)
[2021-08-30] MEDS: DEXMEDETOMIDINE 400MCG/NS100ML IV SCH ×8 (03:54→23:32)
[2021-08-30] MEDS: SOLU-MEDROL 40MG VIAL IVP SCH ×2 (05:01→16:46)
[2021-08-30] MEDS: SUCRALFATE 1 GM TABLET PO SCH ×4 (05:01→23:32)
[2021-08-30] MEDS: VANCOMYCIN KIT 1 GM/250 ML IV.KIT IV SCH ×2 (05:01→16:46)
[2021-08-30] MEDS: 0.9% NACL 250ML 250 ML IV SCH ×2 (05:02→16:47)
[2021-08-30 05:22] LABS: HEMATOCRIT 25.2 % (42-54); MEAN CORPUSCULAR HEMOGLOBIN 31.2 pg (27.0-33.0); MEAN CORPUSCULAR HGB CONC 29.4 g/dL (32.0-36.0); MEAN CORPUSCULAR VOLUME 106.3 fL (79-99); NUCLEATED RED BLOOD CELLS 1.5 % (0.0-0.19); RED BLOOD CELL COUNT(AUTO) 2.37 MIL/uL (4.50-6.20); RED CELL DISTRIBUTION WIDTH 21.7 % (11.0-15.5); WHITE BLOOD COUNT (AUTO) 4.6 K/uL (4.8-10.8)
[2021-08-30 05:43] LABS: ALBUMIN 1.7 g/dL (3.5-5.0); BILIRUBIN,TOTAL 0.4 mg/dL (0.2-1.0); CREATININE 0.4 mg/dL (0.5-1.5); CRP QUANTITATIVE 17.5 mg/L (0.00-9.0); POTASSIUM 3.5 mmol/L (3.5-5.1); TOTAL PROTEIN, SERUM 4.4 g/dL (6.0-8.3)
[2021-08-30] MEDS: FENTANYL 2500MCG+NS 250ML 250 ML IV SCH ×2 (06:30→16:59)
[2021-08-30] MEDS: SODIUM BICARB 50MEQ 50ML VIAL IV SCH (07:30)
[2021-08-30] MEDS: FUROSEMIDE 40MG VIAL IV SCH (08:42)
[2021-08-30] MEDS: FLUCONAZOLE 400 MG/NS 200 ML 200 ML IV SCH (08:42)
[2021-08-30] MEDS: PANTOPRAZOLE 40 MG/VIAL IVP SCH ×2 (08:42→21:28)
[2021-08-30] MEDS: INSULIN GLARGINE 100 UNITS/ML 10 ML VIAL SQ SCH ×2 (08:43→21:29)
[2021-08-30] MEDS: BALSAM PERU/CASTOR OIL 60 GM TUBE TP SCH ×2 (08:43→21:29)
[2021-08-30] MEDS: THIAMINE HCL 100 MG/ML 2ML VIAL IVP SCH (08:43)
[2021-08-30 08:50] LABS: ABG BASE EXCESS 11.9 mmol/L (-2.0-3.0); ABG HCO3 39.4 mmol/L (21.0-28.0); ABG OXYGEN SATURATION 93.7 % (95.0-99.0); ABG PCO2 63 mmHg (35-48)
[2021-08-30] MEDS: MIDAZOLAM 100MG-0.9% NS 100ML 100ML BAG IV SCH ×2 (09:41→17:00)
[2021-08-30] MEDS ORDERED: HYDRALAZINE 20MG/ML VIAL IV PRN (16:00)
[2021-08-30] MEDS: ATORVASTATIN 40 MG TABLET NG SCH (21:28)
[2021-08-31] VITALS (33 sets, daily range): BP systolic 84–195; BP diastolic 36–96
[2021-08-31] MEDS: CISATRACURIUM BESYLATE IV SCH ×5 (02:12→23:10)
[2021-08-31] MEDS: NACL 0.9% IV SCH ×5 (02:12→23:10)
[2021-08-31] MEDS: SOLU-MEDROL 40MG VIAL IVP SCH ×2 (04:53→17:06)
[2021-08-31] MEDS: SUCRALFATE 1 GM TABLET PO SCH ×3 (04:54→17:06)
[2021-08-31] MEDS: VANCOMYCIN KIT 1 GM/250 ML IV.KIT IV SCH ×2 (05:23→17:07)
[2021-08-31] MEDS: CHLORHEXIDINE GLUCONATE 473 ML MOUTHWASH MM SCH ×2 (05:23→11:41)
[2021-08-31] MEDS: 0.9% NACL 250ML 250 ML IV SCH ×2 (05:23→17:07)
[2021-08-31] MEDS: DIAZEPAM 5 MG TABLET PO SCH ×3 (05:24→17:07)
[2021-08-31] MEDS: FENTANYL 2500MCG+NS 250ML 250 ML IV SCH ×2 (05:25→17:05)
[2021-08-31] MEDS: MIDAZOLAM 100MG-0.9% NS 100ML 100ML BAG IV SCH ×2 (05:26→17:04)
[2021-08-31] MEDS: DEXMEDETOMIDINE 400MCG/NS100ML IV SCH ×5 (05:32→21:29)
[2021-08-31 05:48] LABS: HEMATOCRIT 24.4 % (42-54); MEAN CORPUSCULAR HEMOGLOBIN 30.7 pg (27.0-33.0); MEAN CORPUSCULAR HGB CONC 29.1 g/dL (32.0-36.0); MEAN CORPUSCULAR VOLUME 105.6 fL (79-99); NUCLEATED RED BLOOD CELLS 1.3 % (0.0-0.19); RED BLOOD CELL COUNT(AUTO) 2.31 MIL/uL (4.50-6.20); WHITE BLOOD COUNT (AUTO) 4.5 K/uL (4.8-10.8)
[2021-08-31 06:04] LABS: % IRON SATURATION 31.1 % (30-44)
[2021-08-31 06:08] LABS: CREATININE 0.4 mg/dL (0.5-1.5); CRP QUANTITATIVE 22.2 mg/L (0.00-9.0); POTASSIUM 3.7 mmol/L (3.5-5.1)
[2021-08-31] MEDS: SODIUM BICARB 50MEQ 50ML VIAL IV SCH (07:30)
[2021-08-31] MEDS: INSULIN GLARGINE 100 UNITS/ML 10 ML VIAL SQ SCH ×2 (09:00→20:40)
[2021-08-31] MEDS: PANTOPRAZOLE 40 MG/VIAL IVP SCH ×2 (09:11→20:39)
[2021-08-31] MEDS: BALSAM PERU/CASTOR OIL 60 GM TUBE TP SCH ×2 (09:11→23:41)
[2021-08-31] MEDS: THIAMINE HCL 100 MG/ML 2ML VIAL IVP SCH (09:11)
[2021-08-31] MEDS: FUROSEMIDE 40MG VIAL IV SCH (09:11)
[2021-08-31] MEDS: FLUCONAZOLE 400 MG/NS 200 ML 200 ML IV SCH (09:11)
[2021-08-31] MEDS ORDERED: NOREPINEPHRIN 4MG/NS 250ML 250 ML IV ONE (15:50)
[2021-08-31] MEDS: METHADONE HCL 10 MG TABLET PO SCH ×2 (17:02→23:09)
[2021-08-31] MEDS: ATORVASTATIN 40 MG TABLET NG SCH (20:39)
[2021-09-01] VITALS (46 sets, daily range): BP systolic 72–193; BP diastolic 27–104
[2021-09-01] MEDS: DIAZEPAM 5 MG TABLET PO SCH ×5 (00:31→22:10)
[2021-09-01] MEDS: SUCRALFATE 1 GM TABLET PO SCH ×5 (00:32→21:12)
[2021-09-01] MEDS: DEXMEDETOMIDINE 400MCG/NS100ML IV SCH ×10 (00:43→22:42)
[2021-09-01] MEDS: METHADONE HCL 10 MG TABLET PO SCH ×5 (03:20→23:11)
[2021-09-01] MEDS: NACL 0.9% IV SCH ×4 (03:23→17:07)
[2021-09-01] MEDS: CISATRACURIUM BESYLATE IV SCH ×4 (03:23→17:07)
[2021-09-01 04:27] LABS: MEAN CORPUSCULAR HEMOGLOBIN 31.3 pg (27.0-33.0); MEAN CORPUSCULAR HGB CONC 29.6 g/dL (32.0-36.0); MEAN CORPUSCULAR VOLUME 105.7 fL (79-99); NUCLEATED RED BLOOD CELLS 1.2 % (0.0-0.19); RED BLOOD CELL COUNT(AUTO) 2.27 MIL/uL (4.50-6.20); RED CELL DISTRIBUTION WIDTH 20.9 % (11.0-15.5); WHITE BLOOD COUNT (AUTO) 4.3 K/uL (4.8-10.8)
[2021-09-01 05:15] LABS: ALBUMIN 1.6 g/dL (3.5-5.0); BILIRUBIN,TOTAL 0.5 mg/dL (0.2-1.0); CREATININE 0.4 mg/dL (0.5-1.5); CRP QUANTITATIVE 69.8 mg/L (0.00-9.0); POTASSIUM 3.5 mmol/L (3.5-5.1); TOTAL PROTEIN, SERUM 4.3 g/dL (6.0-8.3)
[2021-09-01] MEDS: SOLU-MEDROL 40MG VIAL IVP SCH ×2 (05:46→17:06)
[2021-09-01] MEDS: 0.9% NACL 250ML 250 ML IV SCH ×2 (05:47→18:19)
[2021-09-01] MEDS: VANCOMYCIN KIT 1 GM/250 ML IV.KIT IV SCH ×2 (05:47→18:19)
[2021-09-01] MEDS: MIDAZOLAM 100MG-0.9% NS 100ML 100ML BAG IV PRN ×2 (05:48→15:25)
[2021-09-01] MEDS: FENTANYL 2500MCG+NS 250ML 250 ML IV SCH ×2 (06:14→15:24)
[2021-09-01] MEDS: SODIUM BICARB 50MEQ 50ML VIAL IV SCH (07:30)
[2021-09-01] MEDS: POTASSIUM CHLORIDE 20MEQ/100ML 100 ML IV PRN (08:08)
[2021-09-01] MEDS: FLUCONAZOLE 400 MG/NS 200 ML 200 ML IV SCH (08:08)
[2021-09-01] MEDS: PANTOPRAZOLE 40 MG/VIAL IVP SCH ×2 (08:08→19:58)
[2021-09-01] MEDS: THIAMINE HCL 100 MG/ML 2ML VIAL IVP SCH (08:09)
[2021-09-01] MEDS: FUROSEMIDE 40MG VIAL IV SCH (08:09)
[2021-09-01] MEDS: INSULIN GLARGINE 100 UNITS/ML 10 ML VIAL SQ SCH ×2 (08:10→21:00)
[2021-09-01] MEDS: BALSAM PERU/CASTOR OIL 60 GM TUBE TP SCH ×2 (08:10→21:12)
[2021-09-01 12:40] LABS: ABG BASE EXCESS 13.2 mmol/L (-2.0-3.0); ABG HCO3 41.1 mmol/L (21.0-28.0); ABG OXYGEN SATURATION 83.6 % (95.0-99.0); ABG PCO2 66 mmHg (35-48)
[2021-09-01] MEDS ORDERED: NOREPINEPHRIN 4MG/NS 250ML 250 ML IV ONE (15:20)
[2021-09-01] MEDS: ATORVASTATIN 40 MG TABLET NG SCH (19:58)
[2021-09-02] VITALS (20 sets, daily range): BP systolic 112–164; BP diastolic 55–88
[2021-09-02] MEDS: SUCRALFATE 1 GM TABLET PO SCH (00:15)
[2021-09-02] MEDS ORDERED: ROCURONIUM BROMIDE 10MG/1ML 5ML VL ONE (00:19)
[2021-09-02] MEDS ORDERED: 0.9%NACL 100ML 100 ML ONE (00:20)
[2021-09-02] MEDS ORDERED: ROCURONIUM BROMIDE 100 MG in 0.9%NACL 100ML 100 ML IV SCH (00:30)
[2021-09-02] MEDS: FENTANYL 2500MCG+NS 250ML 250 ML IV SCH ×2 (00:42→08:00)
[2021-09-02] MEDS: MIDAZOLAM 100MG-0.9% NS 100ML 100ML BAG IV PRN (00:45)
[2021-09-02] MEDS: DEXMEDETOMIDINE 400MCG/NS100ML IV SCH ×3 (03:28→06:07)
[2021-09-02] MEDS: 0.9% NACL 250ML 250 ML IV SCH (05:12)
[2021-09-02] MEDS: VANCOMYCIN KIT 1 GM/250 ML IV.KIT IV SCH (05:12)
[2021-09-02] MEDS: DIAZEPAM 5 MG TABLET PO SCH (05:19)
[2021-09-02] MEDS: SODIUM BICARB 50MEQ 50ML VIAL IV SCH (07:22)
[2021-09-02] MEDS: INSULIN GLARGINE 100 UNITS/ML 10 ML VIAL SQ SCH (07:24)
[2021-09-02] MEDS: METHADONE HCL 10 MG TABLET PO SCH (08:22)
[2021-09-02] MEDS: FLUCONAZOLE 400 MG/NS 200 ML 200 ML IV SCH (08:22)
[2021-09-02] MEDS: PANTOPRAZOLE 40 MG/VIAL IVP SCH (08:22)
[2021-09-02] MEDS: BALSAM PERU/CASTOR OIL 60 GM TUBE TP SCH (08:22)
[2021-09-02] MEDS: FUROSEMIDE 40MG VIAL IV SCH (08:22)
[2021-09-02] MEDS: THIAMINE HCL 100 MG/ML 2ML VIAL IVP SCH (08:22)
[2021-09-02] MEDS ORDERED: PREDNISONE 20 MG TABLET PO SCH (09:00)
[2021-09-02] MEDS ORDERED: FENTANYL CITRATE PF 50 MCG/1 ML 2ML VIAL IVP PRN (10:00)
[2021-09-02] MEDS: LORAZEPAM 2 MG/ML 1 ML VIAL IVP PRN ×2 (10:09→11:04)
== END 2021-09-02 11:19 | DRG 207 ==
LOC: EDH 14:32 → EDHIP 14:33 → 4BH 07-22 02:07 → 2BH 08-01 10:55
PROVIDERS: ADMIT Internal Medicine Infectious Disease; ATTEND Internal Medicine Infectious Disease
PROC: XW0DXM6 Introduction of Baricitinib into Mouth and Pharynx, External Approach, New Technology Group 6 (ICD-10-PCS; 2021-07-22)
PROC: XW033E5 Introduction of Remdesivir Anti-infective into Peripheral Vein, Percutaneous Approach, New Technology Group 5 (ICD-10-PCS; 2021-07-22)
PROC: 5A0935A Assistance with Respiratory Ventilation, Less than 24 Consecutive Hours, High Flow/Velocity Cannula (ICD-10-PCS; 2021-07-22)
PROC: 5A1935Z Respiratory Ventilation, Less than 24 Consecutive Hours (ICD-10-PCS; 2021-07-22)
PROC: 5A09357 Assistance with Respiratory Ventilation, Less than 24 Consecutive Hours, Continuous Positive Airway Pressure (ICD-10-PCS; 2021-07-23)
PROC: 5A09357 Assistance with Respiratory Ventilation, Less than 24 Consecutive Hours, Continuous Positive Airway Pressure (ICD-10-PCS; 2021-07-24)
PROC: 5A09357 Assistance with Respiratory Ventilation, Less than 24 Consecutive Hours, Continuous Positive Airway Pressure (ICD-10-PCS; 2021-07-25)
PROC: 5A0935A Assistance with Respiratory Ventilation, Less than 24 Consecutive Hours, High Flow/Velocity Cannula (ICD-10-PCS; 2021-07-26)
PROC: 5A09357 Assistance with Respiratory Ventilation, Less than 24 Consecutive Hours, Continuous Positive Airway Pressure (ICD-10-PCS; 2021-07-26)
PROC: 5A09457 Assistance with Respiratory Ventilation, 24-96 Consecutive Hours, Continuous Positive Airway Pressure (ICD-10-PCS; 2021-07-27)
PROC: 5A0935A Assistance with Respiratory Ventilation, Less than 24 Consecutive Hours, High Flow/Velocity Cannula (ICD-10-PCS; 2021-07-29)
PROC: 5A09357 Assistance with Respiratory Ventilation, Less than 24 Consecutive Hours, Continuous Positive Airway Pressure (ICD-10-PCS; 2021-07-30)
PROC: 5A09457 Assistance with Respiratory Ventilation, 24-96 Consecutive Hours, Continuous Positive Airway Pressure (ICD-10-PCS; 2021-07-30)
PROC: 5A1955Z Respiratory Ventilation, Greater than 96 Consecutive Hours (ICD-10-PCS; 2021-08-01)
PROC: 05HM33Z Insertion of Infusion Device into Right Internal Jugular Vein, Percutaneous Approach (ICD-10-PCS; 2021-08-01)
PROC: B543ZZA Ultrasonography of Right Jugular Veins, Guidance (ICD-10-PCS; 2021-08-01)
PROC: 0BH17EZ Insertion of Endotracheal Airway into Trachea, Via Natural or Artificial Opening (ICD-10-PCS; 2021-08-01)
PROC: 30233N1 Transfusion of Nonautologous Red Blood Cells into Peripheral Vein, Percutaneous Approach (ICD-10-PCS; 2021-08-17)
PROC: 0B978ZZ Drainage of Left Main Bronchus, Via Natural or Artificial Opening Endoscopic (ICD-10-PCS; principal; 2021-08-24)
PROC: 0B938ZZ Drainage of Right Main Bronchus, Via Natural or Artificial Opening Endoscopic (ICD-10-PCS; 2021-08-24)
DX: U07.1 COVID-19 (principal); J12.82 Pneumonia due to coronavirus disease 2019; J80 Acute respiratory distress syndrome; E43 Unspecified severe protein-calorie malnutrition; A41.9 Sepsis, unspecified organism; J16.8 Pneumonia due to other specified infectious organisms; R65.21 Severe sepsis with septic shock; B49 Unspecified mycosis; D62 Acute posthemorrhagic anemia; D84.9 Immunodeficiency, unspecified; E87.0 Hyperosmolality and hypernatremia; E87.1 Hypo-osmolality and hyponatremia; Z68.44 Body mass index [BMI] 60.0-69.9, adult; E66.01 Morbid (severe) obesity due to excess calories; E11.9 Type 2 diabetes mellitus without complications; B96.89 Other specified bacterial agents as the cause of diseases classified elsewhere; E78.5 Hyperlipidemia, unspecified; E87.5 Hyperkalemia; E87.70 Fluid overload, unspecified; F11.90 Opioid use, unspecified, uncomplicated; F41.8 Other specified anxiety disorders; F51.05 Insomnia due to other mental disorder; G47.00 Insomnia, unspecified; G47.33 Obstructive sleep apnea (adult) (pediatric); I10 Essential (primary) hypertension; I25.10 Atherosclerotic heart disease of native coronary artery without angina pectoris; K59.00 Constipation, unspecified; L89.90 Pressure ulcer of unspecified site, unspecified stage; N40.1 Benign prostatic hyperplasia with lower urinary tract symptoms; R13.12 Dysphagia, oropharyngeal phase; R33.8 Other retention of urine; S40.811A Abrasion of right upper arm, initial encounter; S41.111A Laceration without foreign body of right upper arm, initial encounter; S80.822A Blister (nonthermal), left lower leg, initial encounter; Z66 Do not resuscitate; Y93.89 Activity, other specified; Y92.89 Other specified places as the place of occurrence of the external cause; Y99.8 Other external cause status; Z74.01 Bed confinement status; Z79.4 Long term (current) use of insulin; Z79.899 Other long term (current) drug therapy; Z85.46 Personal history of malignant neoplasm of prostate; Z91.19 Patient's noncompliance with other medical treatment and regimen; Z88.8 Allergy status to other drugs, medicaments and biological substances; Z83.3 Family history of diabetes mellitus
CPT/HCPCS: 36415; 36600; 71045; 71250; 74018; 80048; 80053; 80061; 80202; 81001; 82271; 82435; 82550; 82728; 82803; 82947; 82948; 83036; 83540; 83550; 83605; 83615; 83735; 83880; 84100; 84132; 84145; 84295; 84484; 85014; 85018; 85025; 85027; 85378; 85610; 85730; 86140; 86850; 86900; 86901; 86923; 87040; 87071; 87077; 87088; 87186; 87205; 87635; 93005; 93970; 94002; 94003; 94640; 94660; 97039; A4344; C1751; C1894; C9113; G0378; J0360; J0456; J0610; J0696; J1100; J1450; J1650; J1815; J1940; J2060; J2250; J2354; J2543; J2704; J2920; J2930; J3010; J3360; J3370; J3411; J3475; J3480; J3490; J7040; J7050; J7608; P9016; P9045